=== PATIENT | male | born 1970 | race Caucasian/White ===

== ENCOUNTER 2020-05-07 12:19 | Inpatient (IN) ==
[2020-05-07] MEDS ORDERED: NITROGLYCERIN SL 0.4 MG/TAB TAB SL PRN ×2 (12:35→16:45)
[2020-05-07] MEDS ORDERED: ASPIRIN CHEW 324 MG PO STA (12:35)
--- NOTE | 2020-05-07 13:17 | XRay Report ---
XR chest 1V portable CLINICAL HISTORY: Atypical chest pain COMPARISON STUDY: No previous studies for comparison. FINDINGS: The cardiac and mediastinal contours are normal. There is no evidence of focal pulmonary co nsolidation. There is no evidence of failure. No pleural effusions are visualized.[ IMPRESSION: No active disease in the chest. ACT 112: Negative or not required by law. Electronically signed by: Trey Waters M.D. 05/07/2020 1:15 PM
[2020-05-07 13:18] LABS: Basophils # (auto) 0.07 K/uL (0-0.2); Basophils % (auto) 0.5 %; Eosinophils # (auto) 0.04 K/uL (0-0.5); Eosinophils % (auto) 0.3 %; Hemoglobin 18.5 g/dL (14.0-18.0); Immature Granulocytes # (auto) 0.03 K/uL (0.00-0.02); Immature Granulocytes % (auto) 0.2 %; Lymphocytes # (auto) 2.72 K/uL (1.2-3.4); Lymphocytes % (auto) 20.5 %; Mean Corpuscular Hemoglobin 31.6 pg (25-34); Mean Corpuscular Hgb Conc 35.6 g/dL (32-36); Mean Corpuscular Volume 88.7 fL (80-100); Mean Platelet Volume 12.7 fL (7.4-10.4); Monocytes % (auto) 8.3 %; Neutrophils # (auto) 9.33 K/uL (1.4-6.5); Neutrophils % (auto) 70.2 %; Platelet Count 184 K/uL (130-400); RDW Coefficient of Variation 12.7 % (11.5-14.5); RDW Standard Deviation 40.8 fL (36.4-46.3); Red Blood Count 5.86 M/uL (4.7-6.1); White Blood Count 13.29 K/uL (4.8-10.8)
[2020-05-07 13:20] LABS: INR 1.1 (0.9-1.1); Partial Thromboplastin Ratio 0.9; Partial Thromboplastin Time 25.4 Seconds (21.0-31.0); Prothrombin Time 11.7 Seconds (9.0-12.0)
[2020-05-07 13:27] LABS: Albumin Level 3.6 gm/dl (3.4-5.0); BUN Creatinine Ratio 8.1 (10-20); Calcium 8.3 mg/dl (8.5-10.1); Creatinine Clr Calc Pharmacy 94.1 ml/min; Est GFR (African American) 83.2; Est GFR (Non-African American) 71.8; Potassium 3.7 mmol/L (3.5-5.1)
[2020-05-07 13:35] LABS: Albumin Globulin Ratio 0.9 (0.9-2); Total Protein 7.6 gm/dl (6.4-8.2); Troponin I 30.9 ng/ml (0-0.045)
[2020-05-07] MEDS ORDERED: Heparin IV Low Dose WITH Bolus IV STA (13:37)
[2020-05-07] MEDS ORDERED: HEPARIN SODIUM/DEXTROSE 25,000 UNITS/500 ML BAG IV SCH (13:45)
[2020-05-07] MEDS ORDERED: NiCARDipine HCL INJ 2.5 MG/ML 10 ML AMP ONE (14:08)
[2020-05-07] MEDS ORDERED: HEPARIN (PORCINE) 1000 UNIT/ML 10 ML (CATH LAB USE ONLY) ONE ×2 (14:08→14:52)
[2020-05-07] MEDS ORDERED: fentaNYL citrate 100 MCG/2 ML VIAL ONE ×2 (14:08→15:16)
[2020-05-07] MEDS ORDERED: MIDAZOLAM HCL 1 MG/ML 2ML VIAL ONE ×2 (14:09→15:17)
[2020-05-07] MEDS ORDERED: NITROGLYCERIN/D5W 100MCG/ML 20ML SYR ONE ×2 (14:09→15:14)
--- NOTE | 2020-05-07 14:28 | Pre Anesthesia Assessment ---
Date of Service May 07, 2020 Pre Sedation Assessment Vital Signs Temp Pulse Pulse Resp BP BP Pulse Ox 05/07/20 14:15 87 17 167/101 H 98 05/07/20 13:31 74 15 97 05/07/20 13:30 75 14 118/87 97 05/07/20 13:01 89 19 96 05/07/20 13:00 87 17 125/95 96 05/07/20 12:42 97 05/07/20 12:41 90 15 140/98 97 05/07/20 12:39 87 14 96 05/07/20 12:37 98 H 20 150/119 H 97 05/07/20 12:21 98.2 F 102 H 18 120/87 96 Cardiovascular RRR, no murmur, no edema Respiratory normal respiratory effort, lungs clear to auscultation Pre-Sedation Airway Assessment Smoking Status: Never smoker Hx Sleep Apnea: No Hx Difficult Intubation: No Short, Thick Neck: No Thyromental Distance: > or= 3.5 Finger Breadths Oral Cavity: + WNL Mallampati Class: III ASA: ASA3 NPO Status Date of Last Intake of Fluids: 05/07/20 Time of Last Intake of Fluids: 09:00 Date of Last Intake of Solid Food: 05/07/20 Time of Last Intake of Solid Foods: 08:00 Procedure Planning Contraindications for Sedation: none Current Medications Reviewed: Yes Notes The planned sedation has been discussed with the patient. Informed Consent was obtained. I have identified the patient, determined the appropriateness of sedation and have assessed the patient immediately prior to the procedure. All medicine(s) and interventions are by my order.
--- NOTE | 2020-05-07 14:35 | Cardiology Consultation ---
Date of Consultation May 07, 2020 Assessment & Plan (1) Acute coronary syndrome: Presentation consistent with high risk acute coronary syndrome and recommend proceeding with urgent cardiac catheterization. No apparent contraindications to procedure. Discussed risks, benefits, alternatives of procedure with patient and they are willing to proceed. Further recommendations pending findings of coronary angiography. History of Present Illness Attending Physician: Alejandro Rubin MD History of Present Illness 50-year-old man here with acute chest pain, dynamic ST changes and elevated troponin to 30. Patient seen urgently after contacted by emergency department. No prior cardiac history. Significant family history of coronary artery disease. Father had first NH around age 50, later underwent bypass surgery. Older brother after massive NH in his early 40s. Does not currently follow with a doctor. Denies any active medical issues. States previously has had kidney stones and rare hematochezia. 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 Pain associated with shortness of breath, diaphoresis and frequent belching. Went home from work and continued to have intermittent pain overnight. Only able to sleep several hours. This morning with walking around his home pain recurred. Presented to ED this afternoon with mild residual chest pain. Hypertensive to the 160s. EKG showed subtle anterior elevations and [address] depressions in 3 and aVF. Allergies Allergy/AdvReac Type Severity Reaction Status Date / Time No Known Allergies Allergy Mild Unverified 11/04/06 03:48 ALLERGY2 Allergy Unknown Uncoded 11/04/06 03:48 Home Medications Home Medications Medication Instructions Recorded Confirmed Type None (Patient States No Home Meds) #0 11/04/06 History None (Patient States No Home Meds) #0 10/18/10 History Patient History Social History Smoking Status: Never smoker Feels Safe at Home: Yes Review of Systems Review of Systems: All systems reviewed & are unremarkable except as noted in HPI & below Physical Exam Physical Exam: General: Comfortable, no acute distress HEENT: Sclerae anicteric, mucous membranes moist Lungs: Clear to auscultation bilaterally, no rhonchi or wheezes Cardiac: Regular rate and rhythm, no murmurs. No JVD. Abdomen: Soft, nontender, nondistended, positive bowel sounds. Extremities: Warm, well perfused, no edema. 2+ radial pulses Skin: No rashes or lesions. Neuro: Nonfocal Psych: Alert orient x3, normal affect and mood Results & Data ([facility]) Vital Signs (Past 12 Hours) Vital Signs Temp Pulse Pulse Resp BP BP Pulse Ox 05/07/20 14:15 87 17 167/101 H 98 05/07/20 13:31 74 15 97 05/07/20 13:30 75 14 118/87 97 05/07/20 13:01 89 19 96 05/07/20 13:00 87 17 125/95 96 05/07/20 12:42 97 05/07/20 12:41 90 15 140/98 97 05/07/20 12:39 87 14 96 05/07/20 12:37 98 H 20 150/119 H 97 05/07/20 12:21 98.2 F 102 H 18 120/87 96 PG Care Time/CCT Total # of Minutes Spent Total Time Spent with Patient: Total time spent is greater than 50% in coordination of care (as documented) at patient's floor/unit and/or counseling patient: Coding Level of Care Code 77518 Inpt Consult Level 4 Diagnoses Acute coronary syndrome I24.9
[2020-05-07] MEDS ORDERED: EPTIFIBATIDE 2 MG/ML 10 ML VIAL (CATH LAB USE ONLY) IV ONE (15:10)
[2020-05-07] MEDS ORDERED: ONDANSETRON INJ 2 MG/ML 2 ML VIAL ONE (15:10)
--- NOTE | 2020-05-07 15:48 | Electrocardiogram Report ---
Test Reason : Blood Pressure : / mmHG Vent. Rate : 087 BPM Atrial Rate : 087 BPM P-R Int : 148 ms QRS Dur : 080 ms QT Int : 358 ms P-R-T Axes : 068 -35 026 degrees QTc Int : 430 ms Normal sinus rhythm Left axis deviation Low voltage QRS Nonspecific ST abnormality Abnormal ECG No previous ECGs available Confirmed by Aric Joseph ([id number]) on 05/07/2020 3:47:58 PM Referred By: REFERRED SELF Confirmed By:Aric Joseph
--- NOTE | 2020-05-07 15:51 | Electrocardiogram Report ---
Test Reason : Blood Pressure : / mmHG Vent. Rate : 078 BPM Atrial Rate : 078 BPM P-R Int : 150 ms QRS Dur : 074 ms QT Int : 372 ms P-R-T Axes : 055 -39 006 degrees QTc Int : 424 ms Normal sinus rhythm Left axis deviation Inferior infarct (cited on or before 07-MAY-2020) Lateral injury pattern ACUTE MO / STEMI Abnormal ECG When compared with ECG of 07-MAY-2020 12:27, (unconfirmed) No significant change was found Confirmed by Aric Joseph ([id number]) on 05/07/2020 3:51:29 PM Referred By: REFERRED SELF Confirmed By:Aric Joseph
[2020-05-07] MEDS ORDERED: EPTIFIBATIDE 0.75 MG/ML 75MG VIAL (CATH LAB USE ONLY) ONE (16:10)
[2020-05-07] MEDS ORDERED: TICAGRELOR 90 MG TAB PO ONE (16:10)
--- NOTE | 2020-05-07 16:36 | Post Anesthesia Assessment ---
Date of Service May 07, 2020 Post Sedation Assessment Vital Signs Temp Pulse Pulse Resp BP BP Pulse Ox 05/07/20 16:25 67 20 150/98 H 99 05/07/20 14:15 87 17 167/101 H 98 05/07/20 13:31 74 15 97 05/07/20 13:30 75 14 118/87 97 05/07/20 13:01 89 19 96 05/07/20 13:00 87 17 125/95 96 05/07/20 12:42 97 05/07/20 12:41 90 15 140/98 97 05/07/20 12:39 87 14 96 05/07/20 12:37 98 H 20 150/119 H 97 05/07/20 12:21 98.2 F 102 H 18 120/87 96 Recovery Score Activity: Moves 4 extremities Respiration: Deep Breath/Cough Circulation: +/-20% PreAnes Value Consciousness: Fully Awake Oxygen Saturation: O2 needed for >90% Post Anesthesia Score: 10 Discharge Sedation Level of Care: Fast Track Phase II Post Sedation Plan On clinical assessment, the patient appears to have tolerated the sedation without complications. Patient is recovering as anticipated. Patient will continue to be monitored by nursing and may be discharged when sedation discharge criteria are met per below protocol. Upon Completions of procedure up to 15 minutes continue every 5 minute vital signs and the P.A.R. score; then discharge to a Phase I or Fast Track to Phase II per the following guidelines: * Discharge Patient to appropriate Phase II area if PAR is 8 or greater or return to pre- procedure baseline. The post - procedure orders will be as directed. * If PAR score is less than 8 or not return to pre-procedure baseline then patient will follow Phase I monitoring till PAR is reached for Phase II. The Phase I may be done in procedure room or may call to secure a Phase I area. * If naloxone or flumazenil are used for reversal, hold in Phase I for continued monitoring from when last reversal dose was given for a minimum of 60 minutes or longer pending the nurse and/or physician discretion of patient condition before discharge to Phase II. Please call the Sedation Physician to re-evaluate and complete post-note for discharge to Phase II area. Do NOT discharge from procedure sedation or Phase 1 until post- sedation evaluation note is complete by procedure /sedation MD Sedation Discharge Instructions to be given to the patient at discharge to home.
[2020-05-07] MEDS ORDERED: EPTIFIBATIDE BOLUS/DRIP IV STA (16:40)
[2020-05-07] MEDS ORDERED: ONDANSETRON INJ 2 MG/ML 2 ML VIAL IV PRN (16:40)
[2020-05-07] MEDS ORDERED: ACETAMINOPHEN 325 MG TAB PO PRN (16:40)
[2020-05-07] MEDS ORDERED: EPTIFIBATIDE 75 MG/100 ML VIAL IV SCH (16:45)
[2020-05-07] MEDS ORDERED: SODIUM CHLORIDE 0.9% 1000ML 1,000 ML IV SCH (16:45)
--- NOTE | 2020-05-07 17:14 | Cardiac Catheterization ---
[facility] Data: Scan Coordinator Cardiac Status Clinical evaluation leading to the procedure CAD Presenation: Non STEMI Anginal Classification: CCS IV Heart Failure: No Cardiogenic Shock within 24 Hours: No Cardiac Arrest within 24 Hours: No Imaging Studies Past 6 Months: No Stress Studies Past 6 Months: No Diagnostic Physicians Name: Alejandro Rubin MD Closure Device Percutaneous Entry Location: Radial Closure Device: Radial Band Recommendations: PCI without planned CABG PCI Indication: PCI for high risk Non-KAITLYNN Lesion Segment Name: proximal circumflex Culprit Artery: Yes Stenosis Prior to Rx (%): 100 Chronic Total Occlusion: No IVUS: No FFR: No Pre-Procedure RUSTAM Flow: 0 Previously Treated Lesion: No Lesion Complexity: High/C Lesion Length (mm): 40 Thrombus Present: Yes Guidewire Across Lesion: Stenosis Post-Procedure (%): 0 Post-Procedure RUSTAM Flow: 3 Devices(s) Deployed: Yes Yes Intraprocedure Events Significant Disection: No Perforation: No Cardiac Cath Procedure Full Procedure Date May 07, 2020 Pre-Procedure Diagnosis Pre-Procedure Diagnosis: Non STEMI AUC Score AUC Score: 8 Post-Procedure Diagnosis Post-Procedure Diagnosis: Severe CAD, Successful PCI and Normal Intracardiac Pressures Procedure(s) Performed Procedure(s) Performed: Coronary Angiography, Left Heart Cath and Drug Eluting Stent Trim Installer Alejandro Rubin MD Records Assistant(s) Liliya Estimated Blood Loss Estimated Blood Loss: 20 Medication(s) Medication(s): Fentanyl, Heparin, Integrilin, Lidocaine 1%, Nicardipine, Nitroglycerin and Versed Medication(s): Ticagrelor Summary of Findings Indication: High risk acute coronary syndrome Access: 6 Fr slender right radial artery Catheters: [place], EBU 3.5 guide, pigtail Findings: LM -luminal irregularities LAD -medium caliber vessel, proximal to mid luminal irregularities, distal vessel wraps around apex. Medium caliber second diagonal with 40 to 50% proximal disease Circumflex -100% proximal acute occlusion at takeoff of small first OM RCA -dominant, large caliber vessel, mildly calcified, 30% proximal to mid disease, 50% distal, focal 70% stenosis in large right posterior AV branch. LVEDP -12 -- PCI -- Antithrombotic therapy: Heparin, Integrilin, ticagrelor Procedure: Left main cannulated with EBU 3.5 guide Cutting Tool Sharpener 50 wire passed across lesion into distal OM2 Proximal to mid circumflex lesion predilated with 2.5 compliant balloon Minimal reestablished flow after initial angioplasty. Given IC Integrilin and vasodilators. Second submersible pilot 50 wire placed into distal circumflex/left PLB Proximal/mid into OM 2 predilated with 2.0 and 2.5 balloons Small distal circumflex dilated with 2.0 balloon Mid circumflex into OM 2 stented with 2.25 x 30 mm [place] drug-eluting stent Distal circumflex rewired and takeoff through stent struts dilated with 2.0 balloon Second PRESTON (2.75 x 12 Mychal) placed from proximal circumflex to mid circumflex overlapping initial stent Stents post-dilated with 3.0 noncompliant balloon Distal circumflex again rewired and stents gently dilated with 2.0 balloon IC vasodilators administered for spasm Questionable edge dissection versus thrombus noted just after distalmost stent. Third PRESTON (2.25 x 12 Mychal) placed to OM 2 overlapping distal most aspect of initial stent Stent postdilated with stent balloon Post procedure RUSTAM 2-3 flow, stents well expanded with minimal residual st enosis. Some distal thrombus in OM 2. Arterial Closure: TR band Summary: 1. 100% acute occluded proximal circumflex 2. Severe single-vessel non-culprit coronary artery disease -50% distal RCA, 70% right posterior AV branch stenosis 3. Normal intracardiac filling pressure 4. Successful PCI of proximal circumflex into OM 2 with 3 overlapping drug- eluting stents (2.75 x 12, 2.25 x 30, 2.25 x 12; proximal stents postdilated with 3.0 NC). -Small distal circumflex takeoff dilated through stent struts with 2.0 balloon Recommendations: Admit to PCU for continued monitoring Continue Integrilin for 4 hours with some distal residual thrombus Loaded with ticagrelor 180 mg in Scan Coordinator Continue dual-antiplatelet therapy for at least 1 year. Trend troponins until peak, Check Echo Uptitrate beta-saul/MARIEL as BP allows High-dose statin Consult cardiac Rehab Possible staged PCI to distal RCA/right PAV later this hospitalization. Hemodynamics Rest Ao:: 95/68/90 Final Ao: 119/74/84 LV: 124/12 Recommendations Recommendations: PCI without planned CABG Specimens Specimens: None Radiation Exposure (mGy) 7000 Contrast (mls) 135 Fluids (cc crystalloids) Fluids (cc crystalloids): 180 Drains Drains: None Anesthesia Moderate Procedural Complication(s) None Disposition PCU I attest to the content of the Intraoperative Record and any orders documented therein. Any exceptions are noted below. [facility] Card Cath Procedure Codes Cardiac Catheterization Procedure 1: Cardiovascular Cath Procedures: 21470 Coronaries and LHC (+/-LV) Moderate Sedation Procedure 1: Sedation/Anesthesia: 19216 Mod Sedation by the same physician;Init15 Min Child Age 5 & Up Procedure 2: Sedation/Anesthesia: 46012 Mod Sedation by the same physician; Ea [id number] Minutes Stenting Procedure 1: Cardiovascular Stent Procedures: 21023 Perc transluminal revascularization of acute sub/total occl, aMI PG Care Time/CCT Total # of Minutes Spent Total Time Spent with Patient: Total time spent is greater than 50% in coordination of care (as documented) at patient's floor/unit and/or counseling patient:
--- NOTE | 2020-05-07 18:27 | Emergency Department Note ---
History of Present Illness General Chief complaint: Chest Pain Stated complaint: CHEST PAIN, SOB Time Seen by Provider: 05/07/20 12:26 Source: patient and RN notes reviewed Mode of arrival: ambulatory Limitations: no limitations History of Present Illness Provider complaint: Chest pain Maximum Pain Intensity: 1 This patient is a 50-year-old male who presents to the emergency department with complaints of a substernal chest discomfort that wraps around both sides of the chest. Patient states he first noticed the discomfort last evening at work at approximately 8:30 PM. 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 He then ate a rice crispy treat thinking it was his blood sugar. The patient was eventually sent home and tried to sleep although was restless and at about 1 AM woke up with recurrent symptoms. Patient again tried to sleep and at 9 AM contacted his insurance company's nurse line who sent him to the emergency department. Patient states upon getting out of bed today he developed similar chest sensation and diaphoresis. Currently the patient rates his pain a 2/10 and it is in his upper back. He denies any recent fevers, chills, cough or shortness of breath. He denies any vomiting or diarrhea. Patient states his diet is "terrible" and he does not follow with a PCP. He drinks occasionally but states when he drinks it is "heavy." Patient also states he occasionally smokes cigarettes. Home Medications Home Medications Medication Instructions Recorded Confirmed Type None (Patient States No Home Meds) #0 11/04/06 History None (Patient States No Home Meds) #0 10/18/10 History Allergies Allergy/AdvReac Type Severity Reaction Status Date / Time No Known Allergies Allergy Mild Unverified 11/04/06 03:48 ALLERGY2 Allergy Unknown Uncoded 11/04/06 03:48 Past Med/Surg History Social History (Updated 05/07/20 @ 18:36 by Susan Hermosillo MD) Smoking Status: Light tobacco smoker Tobacco Type: Cigarettes Hx Alcohol Use: Yes Alcohol Intake Frequency: 2-4 x/Month Alcohol Intake Frequency Comment: Episodic but heavy Hx Substance Use: Yes Last Used Substance Other:: smoked years ago. has quit. Preferred Language: Yoruba Communication Ability: Effective Electrical Solderer Required: No Beliefs That Will Affect Care: None Current Living Situation: Alone Other Information That Helps Us Care for You: No Feels Safe at Home: Yes Safety Concerns: Feels Safe At This Time Review of Systems See HPI for pertinent positives & negatives. and A total of 10 systems reviewed and were otherwise negative Physical Exam Vital Signs Vital Signs - 24 hr 05/07/20 12:21 05/07/20 12:37 05/07/20 12:39 Temperature 36.8 C Temperature Source Oral Pulse Rate 102 H 98 H 87 Pulse Rate [Apical] Pulse Rate from SpO2 Sensor 97 H 88 Pulse Rhythm [Apical] Respiratory Rate 18 20 14 Respiratory Effort / Characteristics Respiratory Depth Blood Pressure 120/87 150/119 H Blood Pressure [Left Arm] Blood Pressure Mean 98 129 Blood Pressure Mean [Left Arm] Blood Pressure Position [Left Arm] Pulse Oximetry 96 97 96 Oxygen Delivery Method Room Air Sepsis Recent Fever Within 48 Hours No Sepsis New/Unexplained Change in Mental Status No Sepsis Action Taken by Nursing No Action Required 05/07/20 12:41 05/07/20 12:42 05/07/20 13:00 Temperature Temperature Source Pulse Rate 90 87 Pulse Rate [Apical] Pulse Rate from SpO2 Sensor 89 85 Pulse Rhythm [Apical] Respiratory Rate 15 17 Respiratory Effort / Characteristics Respiratory Depth Blood Pressure 140/98 125/95 Blood Pressure [Left Arm] Blood Pressure Mean 102 102 Blood Pressure Mean [Left Arm] Blood Pressure Position [Left Arm] Pulse Oximetry 97 97 96 Oxygen Delivery Method Room Air Sepsis Recent Fever Within 48 Hours Sepsis New/Unexplained Change in Mental Status Sepsis Action Taken by Nursing 05/07/20 13:01 05/07/20 13:30 05/07/20 13:31 Temperature Temperature Source Pulse Rate 89 75 74 Pulse Rate [Apical] Pulse Rate from SpO2 Sensor 89 75 75 Pulse Rhythm [Apical] Respiratory Rate 19 14 15 Respiratory Effort / Characteristics Respiratory Depth Blood Pressure 118/87 Blood Pressure [Left Arm] Blood Pressure Mean 92 Blood Pressure Mean [Left Arm] Blood Pressure Position [Left Arm] Pulse Oximetry 96 97 97 Oxygen Delivery Method Sepsis Recent Fever Within 48 Hours Sepsis New/Unexplained Change in Mental Status Sepsis Action Taken by Nursing 05/07/20 14:15 05/07/20 16:25 05/07/20 16:40 Temperature Temperature Source Pulse Rate Pulse Rate [Apical] 87 67 64 Pulse Rate from SpO2 Sensor Pulse Rhythm [Apical] Regular Regular Respiratory Rate 17 20 20 Respiratory Effort / Characteristics Non-Labored Spontaneous Non-Labored Spontaneous Respiratory Depth Normal Normal Blood Pressure Blood Pressure [Left Arm] 167/101 H 150/98 H 137/90 Blood Pressure Mean Blood Pressure Mean [Left Arm] 123 115 105 Blood Pressure Position [Left Arm] Sitting Lying Lying Pulse Oximetry 98 99 98 Oxygen Delivery Method Room Air Room Air Room Air Sepsis Recent Fever Within 48 Hours Sepsis New/Unexplained Change in Mental Status Sepsis Action Taken by Nursing 05/07/20 16:46 Temperature Temperature Source Pulse Rate Pulse Rate [Apical] 66 Pulse Rate from SpO2 Sensor Pulse Rhythm [Apical] Regular Respiratory Rate 20 Respiratory Effort / Characteristics Non-Labored Spontaneous Respiratory Depth Normal Blood Pressure Blood Pressure [Left Arm] 144/85 H Blood Pressure Mean Blood Pressure Mean [Left Arm] 104 Blood Pressure Position [Left Arm] Lying Pulse Oximetry 98 Oxygen Delivery Method Room Air Sepsis Recent Fever Within 48 Hours Sepsis New/Unexplained Change in Mental Status Sepsis Action Taken by Nursing Vital signs reviewed. General: Well-appearing 50 yo male, in no significant distress. HEENT: No scleral icterus, PERRLA, neck supple. Atraumatic. Cardiovascular: Regular rate and rhythm, no extra sounds. Pulmonary: Clear to auscultation bilaterally, normal work of breathing. Abdomen: Soft, obese, nontender, nondistended, positive bowel sounds. Musculoskeletal: Atraumatic, no peripheral edema. Neurologic: Patient awake alert and oriented x 3 Skin: Warm, dry, no rash Course Administered Medications Sodium Chloride (Nss 1000ml) 1,000 mls @ 100 mls/hr IV .Q10H [facility] Stop: 05/07/20 21:44 Last Admin: 05/07/20 18:02 Dose: 100 mls/hr Documented by: [id number] Eptifibatide (Integrilin) 75 mg in 100 mls @ 17.008 mls/hr IV .Q5H53M [facility]; Protocol Stop: 05/07/20 20:00 Last Admin: 05/07/20 18:03 Dose: 2 mcg/kg/min, 17 mls/hr Documented by: [id number] Cosigned by: [id number] Discontinued Medications Aspirin (Aspirin Chew 324 Mg) 324 mg PO NOW [facility] Stop: 05/07/20 12:36 Last Admin: 05/07/20 12:54 Dose: 324 mg Documented by: [id number] Eptifibatide (Eptifibatide 2 Mg/Ml 10 Ml Vial (Library Cataloging Technician Use Only)) Confirm Administered Dose 40 mg IV .STK-MED ONE Stop: 05/07/20 15:11 Last Admin: 05/07/20 17:27 Dose: Not Given Documented by: [id number] Eptifibatide (Eptifibatide 0.75 Mg/Ml 75mg Vial (Library Cataloging Technician Use Only)) Confirm Administered Dose 75 mg .ROUTE .STK-MED ONE Stop: 05/07/20 16:11 Last Admin: 05/07/20 17:28 Dose: Not Given Documented by: [id number] Fentanyl Citrate (Fentanyl Citrate 100 Mcg/2 Ml Vial) Confirm Administered Dose 100 mcg .ROUTE .STK-MED ONE Stop: 05/07/20 14:09 Last Admin: 05/07/20 17:26 Dose: Not Given Documented by: [id number] Fentanyl Citrate (Fentanyl Citrate 100 Mcg/2 Ml Vial) Confirm Administered Dose 100 mcg .ROUTE .STK-MED ONE Stop: 05/07/20 15:17 Last Admin: 05/07/20 17:27 Dose: Not Given Documented by: [id number] Heparin Sodium (Porcine) (Heparin (Porcine) 1000 Unit/Ml 10 Ml (Library Cataloging Technician Use Only)) Confirm Administered Dose 10,000 units .ROUTE .STK-MED ONE Stop: 05/07/20 14:09 Last Admin: 05/07/20 17:26 Dose: Not Given Documented by: [id number] Heparin Sodium (Porcine) (Heparin (Porcine) 1000 Unit/Ml 10 Ml (Library Cataloging Technician Use Only)) Confirm Administered Dose 10,000 units .ROUTE .STK-MED ONE Stop: 05/07/20 14:53 Last Admin: 05/07/20 17:26 Dose: Not Given Documented by: [id number] Heparin Sodium/Dextrose (Heparin Iv Low Dose With Bolus) 1 ea IV NOW [facility]; Protocol Stop: 05/07/20 13:38 Last Admin: 05/07/20 17:25 Dose: Not Given Documented by: [id number] Heparin Sodium/Sodium Chloride (Heparin In Nss Infusion 1000 Unit/500 Ml (2 U/Ml) Bag) Confirm Administered Dose 3,000 units IV .STK-MED ONE Stop: 05/07/20 14:10 Last Admin: 05/07/20 17:26 Dose: Not Given Documented by: [id number] Heparin Sodium/Sodium Chloride (Heparin In Nss Infusion 1000 Unit/500 Ml (2 U/Ml) Bag) Confirm Administered Dose 4,000 units IV .STK-MED ONE Stop: 05/07/20 16:42 Last Admin: 05/07/20 17:29 Dose: Not Given Documented by: [id number] Heparin Sodium/Dextrose (Heparin Sodium/Dextrose) 25,000 units in 500 mls @ 0.02 mls/hr IV .Q24H [facility]; Protocol Stop: 06/06/20 13:44 Last Admin: 05/07/20 17:25 Dose: Not Given Documented by: [id number] Midazolam HCl (Midazolam Hcl 1 Mg/Ml 2ml Vial) Confirm Administered Dose 2 mg .ROUTE .STK-MED ONE Stop: 05/07/20 14:10 Last Admin: 05/07/20 17:26 Dose: Not Given Documented by: [id number] Midazolam HCl (Midazolam Hcl 1 Mg/Ml 2ml Vial) Confirm Administered Dose 2 mg .ROUTE .STK-MED ONE Stop: 05/07/20 15:18 Last Admin: 05/07/20 17:27 Dose: Not Given Documented by: [id number] Nicardipine HCl (Nicardipine Hcl Inj 2.5 Mg/Ml 10 Ml Amp) Confirm Administered Dose 25 mg .ROUTE .STK-MED ONE Stop: 05/07/20 14:09 Last Admin: 05/07/20 17:26 Dose: Not Given Documented by: [id number] Nitroglycerin (Nitroglycerin Sl 0.4 Mg/Tab Tab) 0.4 mg SL UD PRN PRN Reason: Chest Pain Stop: 06/06/20 12:34 Last Admin: 05/07/20 12:54 Dose: 0.4 mg Documented by: [id number] Nitroglycerin/Dextrose (Nitroglycerin/D5w 100mcg/Ml 20ml Syr) Confirm Administered Dose 2,000 mcg .ROUTE .STK-MED ONE Stop: 05/07/20 14:10 Last Admin: 05/07/20 17:26 Dose: Not Given Documented by: [id number] Nitroglycerin/Dextrose (Nitroglycerin/D5w 100mcg/Ml 20ml Syr) Confirm Adminis tered Dose 2,000 mcg .ROUTE .STK-MED ONE Stop: 05/07/20 15:15 Last Admin: 05/07/20 17:27 Dose: Not Given Documented by: [id number] Ondansetron HCl (Ondansetron Inj 2 Mg/Ml 2 Ml Vial) Confirm Administered Dose 4 mg .ROUTE .STK-MED ONE Stop: 05/07/20 15:11 Last Admin: 05/07/20 17:27 Dose: Not Given Documented by: [id number] Ticagrelor (Ticagrelor 90 Mg Tab) Confirm Administered Dose 180 mg PO .STK-MED ONE Stop: 05/07/20 16:11 Last Admin: 05/07/20 16:29 Dose: 180 mg Documented by: [id number] Critical Care Time Critical Care Time: Yes I have personally spent greater than 35 minutes of critical care time in the direct management of this patient. This includes bedside care, interpretation of diagnostic studies, and testing, discussion with consultants, patient, and family members, and other required patient management activities. This 35 minutes is in excess of all separately billable procedures. Medical Decision Making Differential Diagnosis DDx: Acute coronary syndrome, pulmonary embolus, aortic dissection, musculoskeletal pain, pneumonia, pleural effusion, pneumothorax, GERD, gastritis, cholecystitis Home Medications Current Medication List: was personally reviewed by me Laboratory Data Attestation: I reviewed the patient's lab results. Result diagrams: 05/07/20 12:53 05/07/20 12:53 Lab Results 05/07/20 05/07/20 05/07/20 Range/Units 12:53 12:53 12:53 WBC 13.29 H (4.8-10.8) K/uL RBC 5.86 (4.7-6.1) M/uL Hgb 18.5 H (14.0-18.0) g/dL Hct 52.0 (42-52) % MCV 88.7 (80-100) fL MCH 31.6 (25-34) pg MCHC 35.6 (32-36) g/dL RDW Std Deviation 40.8 (36.4-46.3) fL RDW Coeff of Nelson 12.7 (11.5-14.5) % Plt Count 184 (130-400) K/uL MPV 12.7 H (7.4-10.4) fL Immature Gran % (Auto) 0.2 % Neut % (Auto) 70.2 % Lymph % (Auto) 20.5 % Glynn % (Auto) 8.3 % Eos % (Auto) 0.3 % Baso % (Auto) 0.5 % Neut # (Auto) 9.33 H (1.4-6.5) K/uL Lymph # (Auto) 2.72 (1.2-3.4) K/uL Glynn # (Auto) 1.10 H (0.11-0.59) K/uL Eos # (Auto) 0.04 (0-0.5) K/uL Baso # (Auto) 0.07 (0-0.2) K/uL Immature Gran # (Auto) 0.03 H (0.00-0.02) K/uL PT 11.7 (9.0-12.0) Seconds INR 1.1 (0.9-1.1) APTT 25.4 (21.0-31.0) Seconds PTT Ratio 0.9 Activ Coag Time Kaolin (94-140) SECONDS Sodium 135 L (136-145) mmol/L Potassium 3.7 (3.5-5.1) mmol/L Chloride 103 (98-107) mmol/L Carbon Dioxide 20 L (21-32) mmol/L Anion Gap 12.0 H (3-11) BUN 9 (7-18) mg/dl Creatinine 1.17 (0.6-1.4) mg/dl Est Cr Clr Drug Dosing 94.1 ml/min Est GFR ( Amer) 83.2 Est GFR (Non-Af Amer) 71.8 BUN/Creatinine Ratio 8.1 L (10-20) Glucose 273 H (70-99) mg/dl Calcium 8.3 L (8.5-10.1) mg/dl Total Bilirubin 1.0 (0.2-1) mg/dl AST 245 H (15-37) U/L ALT 65 (12-78) U/L Alkaline Phosphatase 86 (45-117) U/L Troponin I 30.900 H* (0-0.045) ng/ml Total Protein 7.6 (6.4-8.2) gm/dl Albumin 3.6 (3.4-5.0) gm/dl Globulin 4.0 (2.5-4.0) gm/dl Albumin/Globulin Ratio 0.9 (0.9-2) Lipase 118 (73-393) U/L 05/07/20 05/07/20 Range/Units 15:15 15:43 WBC (4.8-10.8) K/uL RBC (4.7-6.1) M/uL Hgb (14.0-18.0) g/dL Hct (42-52) % MCV (80-100) fL MCH (25-34) pg MCHC (32-36) g/dL RDW Std Deviation (36.4-46.3) fL RDW Coeff of Nelson (11.5-14.5) % Plt Count (130-400) K/uL MPV (7.4-10.4) fL Immature Gran % (Auto) % Neut % (Auto) % Lymph % (Auto) % Glynn % (Auto) % Eos % (Auto) % Baso % (Auto) % Neut # (Auto) (1.4-6.5) K/uL Lymph # (Auto) (1.2-3.4) K/uL Glynn # (Auto) (0.11-0.59) K/uL Eos # (Auto) (0-0.5) K/uL Baso # (Auto) (0-0.2) K/uL Immature Gran # (Auto) (0.00-0.02) K/uL PT (9.0-12.0) Seconds INR (0.9-1.1) APTT (21.0-31.0) Seconds PTT Ratio Activ Coag Time Kaolin 235 H 301 H (94-140) SECONDS Sodium (136-145) mmol/L Potassium (3.5-5.1) mmol/L Chloride (98-107) mmol/L Carbon Dioxide (21-32) mmol/L Anion Gap (3-11) BUN (7-18) mg/dl Creatinine (0.6-1.4) mg/dl Est Cr Clr Drug Dosing ml/min Est GFR ( Amer) Est GFR (Non-Af Amer) BUN/Creatinine Ratio (10-20) Glucose (70-99) mg/dl Calcium (8.5-10.1) mg/dl Total Bilirubin (0.2-1) mg/dl AST (15-37) U/L ALT (12-78) U/L Alkaline Phosphatase (45-117) U/L Troponin I (0-0.045) ng/ml Total Protein (6.4-8.2) gm/dl Albumin (3.4-5.0) gm/dl Globulin (2.5-4.0) gm/dl Albumin/Globulin Ratio (0.9-2) Lipase (73-393) U/L Imaging Data Radiologist's Impression: XR chest 1V portable CLINICAL HISTORY: Atypical chest pain COMPARISON STUDY: No previous studies for comparison. FINDINGS: The cardiac and mediastinal contours are normal. There is no evidence of focal pulmonary consolidation. There is no evidence of failure. No pleural effusions are visualized.[ IMPRESSION: No active disease in the chest. ACT 112: Negative or not required by law. Electronically signed by: Trey Waters M.D. 05/07/2020 1:15 PM Dictated: 05/07/20 131 Transcribed: 05/07/20 131 ECG Data Attestation: I personally reviewed and interpreted this ECG as follows: Indication: + chest pain Rate (beats per minute): 87 Rhythm: + normal sinus ECG Intervals/blocks: + Normal QT-c ECG [place]: + Left axis deviation ECG ST segments: + ST elevation (aVL) and + Nonspecific ST abnormalities (ST depression in the inferior and anterior leads.) ECG Findings: no PACs and no PVCs Comparison ECG Date: no prior available Blood Pressure Blood Pressure Findings: Elevated blood pressure Blood Pressure Disposition: further management by hospitalist MEG Narrative This patient was evaluated and appeared to be in no significant distress. IV a ccess was obtained and laboratory work was drawn. 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 EKG reveals evidence of ST segment depression in the inferior and anterior leads. Patient was given 324 mg of aspirin to chew. He was given a nitroglycerin tablet with some improvement of his symptoms. He complains only of a mild upper back discomfort. Chest x-ray was obtained and is negative for acute process. Dr. Rubin of interventional cardiology was consulted. We discussed the EKG changes in the patient's troponin of 30. A heparin drip was ordered but held as the patient was taken to the catheterization lab for further management. He expres sed an understanding of the plan and agreed. A phone call to the patient's brother was made and a message was left. Impression & Plan Acute coronary syndrome Discharge Plan Visit Data Chief Complaint: Chest Pain Stated Complaint: CHEST PAIN, SOB ED Provider: Jaimee,Susan B Discharge Problem: Acute coronary syndrome Patient Disposition: Still a Patient Discharge Instructions Interventions: ED Discharge Assessment Last Done: 05/07/20 14:00
[2020-05-07] MEDS ORDERED: DEXTROSE 50% 50 ML SYRINGE IV PRN (18:30)
[2020-05-07] MEDS ORDERED: CARBOHYDRATES FOR HYPOGLYCEMIA PO PRN (18:30)
[2020-05-07] MEDS ORDERED: GLUCAGON FOR INJ 1 MG VIAL SQ PRN (18:30)
[2020-05-07] MEDS ORDERED: GLUCOSE 10 TABS/TUBE PO PRN (18:30)
[2020-05-07] MEDS ORDERED: GLUCOSE 40% GEL 15 GM TUBE PO PRN (18:30)
--- NOTE | 2020-05-07 18:30 | History & Physical Report ---
Date of Service May 07, 2020 Assessment & Plan (1) STEMI (ST elevation myocardial infarction): Patient currently chest pain free after cardiac catheterization 100% acute occluded proximal circumflex culprit vessel with successful PCI of proximal circumflex into the OM2 with x3 overlapping drug-eluting stents Appreciate interventional cardiology management -discussed care with Dr. Rubin Aspirin 81 mg p.o. daily Brilinta 90 mg p.o. twice daily Metoprolol tartrate 25 mg twice daily Lisinopril 5 mg p.o. daily Atorvastatin 80 mg p.o. daily Monitor in PCU for arrhythmias HbA1c and lipid panel with a.m. labs TTE tomorrow Cardiac consult placed Additional severe single-vessel non-culprit coronary artery disease in RCA - possible staged PCI to this later in hospitalization planned (2) Hyperglycemia: Possible stress reaction, however given lack of primary care suspect he has underlying diabetes. HbA1c with a.m. labs - if elevated or requiring ongoing insulin will need diabetic education BSG ACHS with Novolog correction factor to aim tight control with aim 100-140. (3) Polycythemia: Most likely secondary to obstructive sleep apnea. However given urgency with acute AR will send off JAK2 mutation labs in AM. If Hct > 45% with am labs recommend phlebotomy to aim < 45% and hematology follow up. Admission and Anticipated Discharge Date Admission Date: May 07, 2020 History of Present Illness Chief Complaint: STEMI Primary Care Provider: NO PCP Jaylan Kelly is a 50 year old male who presented to the ER with substernal chest pain radiating around both sides of his chest. This started at 8-8:30 PM last night and was the most severe it is being at this time at this time. Associated shortness of breath, diaphoresis, belching. He was sent home from work but continued to have intermittent pain overnight but eventually managed to get to sleep. Upon waking this morning he continued to have chest pain worse on exertion. He smokes occasionally. Does not follow regularly with a PCP. Notes excessive snoring at nighttime but no diagnosed obstructive sleep apnea. No known prior coronary artery disease. Significant family history with his father having an AR in his 50s requiring bypass surgery. His older brother now had a cardiac arrest with suspected massive AR in his early 40s. In the ER he was having dynamic ST elevation changes anteriorly with reciprocal ST depressions inferiorly. He was taken emergently to the [facility] by Dr. Rubin showing severe coronary artery disease with 100% acute occluded proximal circumflex with successful PCI x3 [place]. Discussed his care after his cardiac cath with Dr. Rubin. The patient was first seen by myself in the PCU. Allergies Allergy/AdvReac Type Severity Reaction Status Date / Time No Known Allergies Allergy Mild Unverified 11/04/06 03:48 Home Medications Home Medications Medication Instructions Recorded Confirmed Type aspirin 81 mg PO QAM #30 tab 05/09/20 Rx atorvastatin 80 mg PO QPM #30 tab 05/09/20 Rx blood sugar diagnostic [OneTouch #100 ea 05/09/20 Rx Verio test strips] insulin glargine [Lantus Solostar 35 unit SUBCUT QAM #15 ml 05/09/20 Rx U-100 Insulin] lancets [OneTouch Delica Plus #100 ea 05/09/20 Rx Lancet] lisinopril 5 mg PO DAILY #30 tab 05/09/20 Rx metformin 500 mg PO DAILY #30 tab 05/09/20 Rx metoprolol succinate 50 mg PO PM #30 tab 05/09/20 Rx nitroglycerin [Nitrostat] 0.4 mg SUBLINGUAL Q5M PRN #5 tab 05/09/20 Rx pen needle, diabetic [Comfort EZ #100 ea 05/09/20 Rx Pen [place]] semaglutide [Rybelsus] 3 mg PO DAILY 30 Days #30 tab 05/09/20 Rx ticagrelor [Brilinta] 90 mg PO BID #60 tab 05/09/20 Rx Past Med/Surg History Medical History (Updated 05/10/20 @ 00:03 by Eric Maharaj) Acute coronary syndrome Patient denies medical problems Social History (Updated 05/07/20 @ 18:36 by Susan Hermosillo MD) Smoking Status: Light tobacco smoker Tobacco Type: Cigarettes Hx Alcohol Use: Yes Alcohol Intake Frequency: 2-4 x/Month Alcohol Intake Frequency Comment: Episodic but heavy Hx Substance Use: No Preferred Language: [place] Citizen Communication Ability: Effective Burrer Marker Axle Required: No Beliefs That Will Affect Care: None Current Living Situation: Alone Feels Safe at Home: Yes Review of Systems Review of Systems: All systems reviewed & are unremarkable except as noted in HPI & below Physical Exam Constitutional: well developed; + not well nourished and no acute distress Eyes: PERRL, conjunctivae normal, anicteric sclerae ENMT: external ear and nose normal, oropharynx normal Neck: normal visual inspection, trachea midline, + short neck and + thick neck Thyroid: no thyromegaly Respiratory: normal respiratory effort, lungs clear to auscultation Cardiovascular: Rate/Rhythm: regular rate and regular rhythm Heart Sounds: no murmur Vessels: no JVD Extremities: normal capillary refill and + pedal edema (Trace bilateral ankles); no calf tenderness Gastrointestinal (Abdomen): normal bowel sounds, soft, nontender, no hepatosplenomegaly Musculoskeletal: no cyanosis or clubbing, extremities motor strength 5/5 Skin: no rashes, warm and dry Neurologic: moves all extremities and awake; no focal motor deficits and not confused Psychiatric: A+Ox3, euthymic affect Genitourinary: no CVA tenderness Lymphatic: no cervical or axillary lymphadenopathy Results & Data Results & Data ([facility]) Vital Signs (Past 12 Hours) Vital Signs Temp Pulse Pulse Resp BP BP Pulse Ox 05/07/20 16:46 66 20 144/85 H 98 05/07/20 16:40 64 20 137/90 98 05/07/20 16:25 67 20 150/98 H 99 05/07/20 14:15 87 17 167/101 H 98 05/07/20 13:31 74 15 97 05/07/20 13:30 75 14 118/87 97 05/07/20 13:01 89 19 96 05/07/20 13:00 87 17 125/95 96 05/07/20 12:42 97 05/07/20 12:41 90 15 140/98 97 05/07/20 12:39 87 14 96 05/07/20 12:37 98 H 20 150/119 H 97 05/07/20 12:21 36.8 C 102 H 18 120/87 96 Diagnostic Findings XR chest 1V portable IMPRESSION: No active disease in the chest. ECG Indication: chest pain Rate (beats per minute): 87 Additional Comments: Dynamic increasing ST elevation in anterior leads with reciprocal ST depression in inferior leads across x3 EKGs taken in the ER All in normal sinus rhythm Code Status & VTE Plan Code Status Full VTE Prophylaxis Plan VTE Prophylaxis will be ordered: No PG Care Time/CCT Total # of Minutes Spent Total Time Spent with Patient: Total time spent is greater than 50% in coordination of care (as documented) at patient's floor/unit and/or counseling patient: Coding Level of Care Code 77201 Initial Inpt Care Lvl 3 Diagnoses STEMI (ST elevation myocardial infarction) I21.3 Hyperglycemia R73.9 Polycythemia D75.1
[2020-05-07] MEDS: METOPROLOL TARTRATE 25 MG TAB PO SCH (20:05)
[2020-05-07] MEDS ORDERED: INSULIN ASPART 100 UNITS/ML 3 ML PEN SC SCH (21:00)
[2020-05-07] MEDS ORDERED: POTASSIUM CHLORIDE 20 MEQ TABCR PO STA (21:38)
[2020-05-07] MEDS ORDERED: MAGNESIUM SULFATE / D5W 1 GM/100 ML BAG IV ONE (22:22)
[2020-05-07] MEDS: INSULIN GLARGINE SOLOSTAR 100 UNITS/ML 3 ML PEN SC SCH (22:24)
[2020-05-07] MEDS: MAGNESIUM OXIDE 400 MG TAB PO SCH (22:39)
[2020-05-07] MEDS ORDERED: FAMOTIDINE 20MG IV PUSH 20 MG/5 ML SYR IV STA ×2 (23:03→23:09)
[2020-05-07] MEDS ORDERED: ALUMINUM/MAGNESIUM/SIMETH (MAALOX MAX) 30 ML UDC PO STA (23:09)
[2020-05-08] MEDS ORDERED: INSULIN ASPART 100 UNITS/ML 3 ML PEN SC ONE ×2 (04:00)
[2020-05-08] MEDS: TICAGRELOR 90 MG TAB PO SCH ×2 (05:32→20:28)
[2020-05-08 05:38] LABS: Basophils # (auto) 0.05 K/uL (0-0.2); Basophils % (auto) 0.4 %; Eosinophils # (auto) 0.05 K/uL (0-0.5); Eosinophils % (auto) 0.4 %; Hematocrit (blood only) 49.1 % (42-52); Hemoglobin 17.5 g/dL (14.0-18.0); Immature Granulocytes # (auto) 0.03 K/uL (0.00-0.02); Immature Granulocytes % (auto) 0.2 %; Lymphocytes # (auto) 2.63 K/uL (1.2-3.4); Lymphocytes % (auto) 19.4 %; Mean Corpuscular Hemoglobin 31.7 pg (25-34); Mean Corpuscular Hgb Conc 35.6 g/dL (32-36); Mean Corpuscular Volume 88.9 fL (80-100); Mean Platelet Volume 12.1 fL (7.4-10.4); Monocytes # (auto) 1.63 K/uL (0.11-0.59); Neutrophils # (auto) 9.15 K/uL (1.4-6.5); Neutrophils % (auto) 67.6 %; Platelet Count 170 K/uL (130-400); RDW Coefficient of Variation 12.7 % (11.5-14.5); RDW Standard Deviation 41.1 fL (36.4-46.3); Red Blood Count 5.52 M/uL (4.7-6.1); White Blood Count 13.54 K/uL (4.8-10.8)
[2020-05-08 06:20] LABS: Magnesium 2.3 mg/dl (1.8-2.4); Troponin I 69.2 ng/ml (0-0.045)
[2020-05-08 06:36] LABS: Estimated Average Glucose 269 mg/dl
[2020-05-08] MEDS: INSULIN ASPART 100 UNITS/ML 3 ML PEN SC SCH ×4 (07:58→20:29)
[2020-05-08] MEDS: INSULIN GLARGINE SOLOSTAR 100 UNITS/ML 3 ML PEN SC SCH ×2 (08:00→20:28)
[2020-05-08] MEDS: ATORVASTATIN 40 MG TAB PO SCH (08:03)
[2020-05-08] MEDS: ASPIRIN 81 MG ECTAB PO SCH (08:06)
[2020-05-08] MEDS: METOPROLOL TARTRATE 25 MG TAB PO SCH ×2 (08:06→20:28)
[2020-05-08] MEDS: lisinopriL 5 MG TAB PO SCH (08:06)
[2020-05-08] MEDS: MAGNESIUM OXIDE 400 MG TAB PO SCH ×2 (09:12→20:28)
--- NOTE | 2020-05-08 09:58 | XCELERA ---
[id number]
--- NOTE | 2020-05-08 11:05 | Cardiology Progress Note ---
Date of Service May 08, 2020 Assessment & Plan (1) Acute [place]: Occluded proximal circumflex post 3 PRESTON from circumflex into OM two 05/07 2. Residual severe distal RCA/posterior AV branch stenosis 3. Preserved LV function with lateral, inferolateral hypokinesis to akinesis 4. Type 2 [id number] 5. Dyslipidemia 6. Suspected obstructive sleep apnea 7. Mild to moderate mitral vegetation 8. Mild aortic insufficiency Patient largely chest pain-free. Troponin peaked overnight. Hemodynamically and electrically stable. No signs of heart failure on exam. No access site complications. Hemoglobin stable. Repeat BMP pending LV function preserved on echo. Plan for staged PCI of RCA today pending stable renal function. Please keep n.p.o. Continue DAPT with aspirin, ticagrelor Continue current lisinopril, metoprolol and high intensity statin If stable overnight possible discharge tomorrow with further discussion of cardiac rehab. Admission and Anticipated Discharge Date Admission Date: May 07, 2020 Subjective Feeling well this morning. Intermittent substernal chest pain overnight associated with belching and some pleuritic component. Pain resolved this morning. Telemetry reviewedno events Review of Systems Review of Systems: All systems reviewed & are unremarkable except as noted in HPI & below Physical Exam Physical Exam: General: Comfortable, no acute distress HEENT: Sclerae anicteric, mucous membranes moist Lungs: Clear to auscultation bilaterally, no rhonchi or wheezes Cardiac: Regular rate and rhythm, no murmurs. Abdomen: Soft, nontender, nondistended, positive bowel sounds. Extremities: Warm, well perfused, no edema. Right radial artery access site with no ecchymosis, hematoma. Distal pulse and sensation intact. Skin: No rashes or lesions. Neuro: Nonfocal Psych: Alert orient x3, normal affect and mood Results & Data ([facility]) Vital Signs (Past 12 Hours) Vital Signs Temp Pulse Pulse Pulse Resp BP Pulse Ox 05/08/20 10:44 98.2 F 74 20 108/70 95 05/08/20 07:09 99.3 F 71 16 118/78 95 05/08/20 03:51 98.6 F 64 16 121/80 95 05/08/20 00:01 67 05/07/20 23:42 98.8 F 68 20 115/68 96 PG Care Time/CCT Total # of Minutes Spent Total Time Spent with Patient: Total time spent is greater than 50% in coordination of care (as documented) at patient's floor/unit and/or counseling patient: Coding Level of Care Code 67930 Subseq Hosp Care Lvl 3 Diagnoses Acute [place] I21.9
[2020-05-08 11:18] LABS: BUN Creatinine Ratio 14.7 (10-20); Calcium 8.7 mg/dl (8.5-10.1); Est GFR (African American) 99.4; Est GFR (Non-African American) 85.7
--- NOTE | 2020-05-08 12:05 | Electrocardiogram Report ---
Test Reason : Blood Pressure : / mmHG Vent. Rate : 067 BPM Atrial Rate : 067 BPM P-R Int : 112 ms QRS Dur : 074 ms QT Int : 390 ms P-R-T Axes : 000 -43 -06 degrees QTc Int : 412 ms Normal sinus rhythm Left axis deviation Low voltage QRS Inferior infarct (cited on or before 07-MAY-2020) Lateral injury pattern ACUTE NC / STEMI Abnormal ECG When compared with ECG of 07-MAY-2020 13:47, No significant change was found Confirmed by Aric Joseph ([id number]) on 05/08/2020 12:05:40 PM Referred By: REFERRED SELF Confirmed By:Aric Joseph
--- NOTE | 2020-05-08 12:12 | Electrocardiogram Report ---
Test Reason : Blood Pressure : / mmHG Vent. Rate : 064 BPM Atrial Rate : 064 BPM P-R Int : 126 ms QRS Dur : 084 ms QT Int : 388 ms P-R-T Axes : 047 -04 015 degrees QTc Int : 400 ms Normal sinus rhythm Low voltage QRS Lateral injury pattern Abnormal ECG When compared with ECG of 07-MAY-2020 17:58, (unconfirmed) QRS axis Shifted right Criteria for Inferior infarct are no longer Present Confirmed by Aric Joseph ([id number]) on 05/08/2020 12:11:30 PM Referred By: REFERRED SELF Confirmed By:Aric Joseph
[2020-05-08] MEDS ORDERED: NiCARDipine HCL INJ 2.5 MG/ML 10 ML AMP ONE (12:16)
[2020-05-08] MEDS ORDERED: MIDAZOLAM HCL 1 MG/ML 2ML VIAL ONE (12:16)
[2020-05-08] MEDS ORDERED: HEPARIN (PORCINE) 1000 UNIT/ML 10 ML (CATH LAB USE ONLY) ONE (12:16)
[2020-05-08] MEDS ORDERED: fentaNYL citrate 100 MCG/2 ML VIAL ONE (12:16)
[2020-05-08] MEDS ORDERED: NITROGLYCERIN/D5W 100MCG/ML 20ML SYR ONE (12:17)
--- NOTE | 2020-05-08 14:30 | Post Anesthesia Assessment ---
Date of Service May 08, 2020 Post Sedation Assessment Vital Signs Temp Pulse Pulse Pulse Resp BP Pulse Ox 05/08/20 14:00 74 16 100/73 98 05/08/20 13:45 98.2 F 74 18 100/73 98 05/08/20 13:40 67 16 108/77 98 05/08/20 13:30 67 16 111/78 98 05/08/20 10:44 98.2 F 74 20 108/70 95 05/08/20 07:09 99.3 F 71 16 118/78 95 05/08/20 03:51 98.6 F 64 16 121/80 95 05/08/20 00:01 67 05/07/20 23:42 98.8 F 68 20 115/68 96 05/07/20 20:00 98.1 F 76 18 132/83 95 05/07/20 19:30 98.6 F 72 16 109/77 95 05/07/20 18:44 74 18 151/117 H 96 05/07/20 18:15 74 16 123/102 H 96 05/07/20 18:00 72 16 123/94 96 05/07/20 17:30 98.1 F 74 18 150/108 H 96 05/07/20 16:46 66 20 144/85 H 98 05/07/20 16:40 64 20 137/90 98 05/07/20 16:25 67 20 150/98 H 99 Recovery Score Activity: Moves 4 extremities Respiration: Deep Breath/Cough Circulation: +/-20% PreAnes Value Consciousness: Fully Awake Oxygen Saturation: > 92% On Room Air Post Anesthesia Score: 10 Discharge Sedation Level of Care: Fast Track Phase II Post Sedation Plan On clinical assessment, the patient appears to have tolerated the sedation without complications. Patient is recovering as anticipated. Patient will continue to be monitored by nursing and may be discharged when sedation discharge criteria are met per below protocol. Upon Completions of procedure up to 15 minutes continue every 5 minute vital signs and the P.A.R. score; then discharge to a Phase I or Fast Track to Phase II per the following guidelines: * Discharge Patient to appropriate Phase II area if PAR is 8 or greater or return to pre- procedure baseline. The post - procedure orders will be as directed. * If PAR score is less than 8 or not return to pre-procedure baseline then patient will follow Phase I monitoring till PAR is reached for Phase II. The Phase I may be done in procedure room or may call to secure a Phase I area. * If naloxone or flumazenil are used for reversal, hold in Phase I for continued monitoring from when last reversal dose was given for a minimum of 60 minutes or longer pending the nurse and/or physician discretion of patient condition before discharge to Phase II. Please call the Sedation Physician to re-evaluate and complete post-note for discharge to Phase II area. Do NOT discharge from procedure sedation or Phase 1 until post- sedation evaluation note is complete by procedure /sedation MD Sedation Discharge Instructions to be given to the patient at discharge to home.
--- NOTE | 2020-05-08 14:35 | Cardiac Catheterization ---
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 Cardiac Status Clinical evaluation leading to the procedure CAD Presenation: Non STEMI Anginal Classification: CCS III Heart Failure: No Cardiogenic Shock within 24 Hours: No Cardiac Arrest within 24 Hours: No Imaging Studies Past 6 Months: Yes Stress Studies Past 6 Months: No Diagnostic Physicians Name: Alejandro Rubin MD Status: Elective Closure Device Percutaneous Entry Location: Radial Closure Device: Radial Band Recommendations: PCI without planned CABG PCI Indication: Staged PCI Lesion Segment Name: Distal RCA Culprit Artery: No Stenosis Prior to Rx (%): 70 Chronic Total Occlusion: No IVUS: No FFR: No Pre-Procedure RUSTAM Flow: 3 Previously Treated Lesion: No Thrombus Present: No Bifurcation Lesion: Yes Guidewire Across Lesion: Stenosis Post-Procedure (%): 0 Post-Procedure RUSTAM Flow: 3 Devices(s) Deployed: Yes Yes Intraprocedure Events Significant Disection: No Perforation: No Cardiac Cath Procedure Full Procedure Date May 08, 2020 Pre-Procedure Diagnosis Pre-Procedure Diagnosis: Non STEMI AUC Score AUC Score: 8 Post-Procedure Diagnosis Post-Procedure Diagnosis: Severe CAD and Successful PCI Procedure(s) Performed Procedure(s) Performed: Drug Eluting Stent Deli/Bakery Associate Alejandro Rubin MD Plastic Straightening Roll Operator(s) Nida Estimated Blood Loss Estimated Blood Loss: 20 Medication(s) Medication(s): Fentanyl, Heparin, Lidocaine 1%, Nicardipine, Nitroglycerin and Versed Medication(s): Ticagrelor Summary of Findings Indication: Staged PCI of RCA Access: 6 Fr slender right radial artery Catheters: JR4 guide Findings: For full details of patient's coronary angiography please see cath report dictated from 05/07/2020. Briefly patient presented with an acute PR found to have an occluded proximal circumflex which was treated with 3 overlapping drug- eluting stents from proximal circumflex into OM 2. Was also noted to have severe diffuse RCA disease into right posterior AV branch. Patient brought back for staged PCI of RCA today. -- PCI -- Antithrombotic therapy: Heparin, ticagrelor Procedure: RCA cannulated with JR4 guide Cage Fighter 50 wire passed across lesion into distal vessel Distal RCA/posterior AV branch lesion predilated with 3.0 compliant balloon Dilated lesion stented with 4.0 x 38 mm Pyatt drug-eluting stent Stent post-dilated with 5.0 noncompliant balloon IC vasodilators administered for spasm Post procedure RUSTAM 3 flow, stent well expanded with minimal residual stenosis. No apparent edge dissection. Reduced flow and small PDA. No new symptoms. Flow improving with repeat injections. Arterial Closure: TR band Summary: 1. Successful PCI of distal RCA into right posterior AV branch with single drug- eluting stent (4.0 x 38 mm Pyatt; postdilated with 5.0 NC balloon) Recommendations: To PCU for continued monitoring Continue dual antiplatelet therapy with aspirin, ticagrelor for at least 1 year Hemodynamics Rest Ao:: 82/62/70 Final Ao: 93/67/80 LV: -- Recommendations Recommendations: PCI without planned CABG Specimens Specimens: None Radiation Exposure (mGy) 2690 Contrast (mls) 115 Fluids (cc crystalloids) Fluids (cc crystalloids): 80 Drains Drains: None Anesthesia Moderate Procedural Complication(s) None Disposition PCU I attest to the content of the Intraoperative Record and any orders documented therein. Any exceptions are noted below. [facility] Card Cath Procedure Codes Moderate Sedation Procedure 1: Sedation/Anesthesia: 95423 Mod Sedation by the same physician;Init15 Min Child Age 5 & Up Procedure 2: Sedation/Anesthesia: 32115 Mod Sedation by the same physician; Ea [id number] Minutes Stenting Procedure 1: Cardiovascular Stent Procedures: 75926 Perc transcatheter placement of intracoronary stent(s), with ang PG Care Time/CCT Total # of Minutes Spent Total Time Spent with Patient: Total time spent is greater than 50% in coordination of care (as documented) at patient's floor/unit and/or counseling patient:
[2020-05-08] MEDS ORDERED: PHARMACY GLYCEMIC MGMT CONSULT PRN (16:12)
--- NOTE | 2020-05-08 21:05 | Hospitalist Progress Note ---
Date of Service May 08, 2020 Assessment & Plan (1) STEMI (ST elevation myocardial infarction): Patient currently chest pain free after cardiac catheterization 100% acute occluded proximal circumflex culprit vessel with successful PCI of proximal circumflex into the OM2 with x3 overlapping drug-eluting stents Appreciate interventional cardiology management -discussed care with Dr. Rubin Aspirin 81 mg p.o. daily Brilinta 90 mg p.o. twice daily Metoprolol tartrate 25 mg twice daily Lisinopril 5 mg p.o. daily Atorvastatin 80 mg p.o. daily Monitor in PCU for arrhythmias HbA1c and lipid panel with a.m. labs TTE tomorrow Cardiac consult placed Additional severe single-vessel non-culprit coronary artery disease in RCA - This was also stented as stated below. Summary: 1. Successful PCI of distal RCA into right posterior AV branch with single drug- eluting stent (4.0 x 38 mm Mychal; postdilated with 5.0 NC balloon) Recommendations: To PCU for continued monitoring Continue dual antiplatelet therapy with aspirin, ticagrelor for at least 1 year (2) Hyperglycemia: Diabetes Mellitus type 2. Patient has underlying A1C of 11. (3) Polycythemia: Most likely secondary to obstructive sleep apnea. However given urgency with acute MS will send off JAK2 mutation labs in AM. If Hct > 45% with am labs recommend phlebotomy to aim < 45% and hematology follow up. Admission and Anticipated Discharge Date Admission Date: May 07, 2020 Subjective Patient reports feeling well. He is unsure if he can follow his diet at home, but will try with a stepwise approach. Review of Systems Review of Systems: All systems reviewed & are unremarkable except as noted in HPI & below Physical Exam Constitutional: WD/WN, vitals as above well developed and well nourished Eyes: PERRL, conjunctivae normal, anicteric sclerae ENMT: external ear and nose normal, oropharynx normal Neck: trachea midline, no thyromegaly Respiratory: normal respiratory effort, lungs clear to auscultation Cardiovascular: RRR, no murmur, no edema Gastrointestinal (Abdomen): normal bowel sounds, soft, nontender, no hepatosplenomegaly Musculoskeletal: no cyanosis or clubbing, extremities motor strength 5/5 Skin: no rashes, warm and dry Neurologic: PERRL, EOMI, accommodation nl, no face palsy, no dysarthria Psychiatric: A+Ox3, euthymic affect Results & Data Results & Data ([facility]) Vital Signs (Past 12 Hours) Vital Signs Temp Pulse Pulse Resp BP Pulse Ox 05/08/20 20:33 37.0 C 83 16 113/75 95 05/08/20 19:08 37.0 C 78 19 104/70 96 05/08/20 17:30 74 16 99/60 L 95 05/08/20 16:30 82 120/78 95 05/08/20 16:00 73 103/66 96 05/08/20 15:30 74 16 107/67 98 05/08/20 15:00 68 16 111/64 97 05/08/20 14:30 72 16 105/72 99 05/08/20 14:15 67 16 112/76 98 05/08/20 14:00 74 16 100/73 98 05/08/20 13:45 36.8 C 74 18 100/73 98 05/08/20 13:40 67 16 108/77 98 05/08/20 13:30 67 16 111/78 98 05/08/20 10:44 36.8 C 74 20 108/70 95 PG Care Time/CCT Total # of Minutes Spent Total Time Spent with Patient: Total time spent is greater than 50% in coordination of care (as documented) at patient's floor/unit and/or counseling patient: Coding Level of Care Code 39092 Subseq Hosp Care Lvl 3 Diagnoses STEMI (ST elevation myocardial infarction) I21.3 Hyperglycemia R73.9 Polycythemia D75.1 Time Spent (min) 35
[2020-05-09 06:39] LABS: BUN Creatinine Ratio 21.4 (10-20); Calcium 8.6 mg/dl (8.5-10.1); Creatinine Clr Calc Pharmacy 115.9 ml/min; Est GFR (Non-African American) 92.3; Potassium 3.7 mmol/L (3.5-5.1)
[2020-05-09] MEDS: INSULIN GLARGINE SOLOSTAR 100 UNITS/ML 3 ML PEN SC SCH (08:16)
[2020-05-09] MEDS: INSULIN ASPART 100 UNITS/ML 3 ML PEN SC SCH ×2 (08:16→11:37)
[2020-05-09] MEDS: TICAGRELOR 90 MG TAB PO SCH (08:17)
[2020-05-09] MEDS: lisinopriL 5 MG TAB PO SCH (08:17)
[2020-05-09] MEDS: ATORVASTATIN 40 MG TAB PO SCH (08:17)
[2020-05-09] MEDS: ASPIRIN 81 MG ECTAB PO SCH (08:17)
[2020-05-09] MEDS: MAGNESIUM OXIDE 400 MG TAB PO SCH (08:17)
[2020-05-09] MEDS: METOPROLOL TARTRATE 25 MG TAB PO SCH (08:17)
[2020-05-09 10:10] LABS: Hematocrit (blood only) 47.1 % (42-52); Hemoglobin 16.1 g/dL (14.0-18.0); Mean Corpuscular Hemoglobin 31.1 pg (25-34); Mean Corpuscular Hgb Conc 34.2 g/dL (32-36); Mean Corpuscular Volume 91.1 fL (80-100); Mean Platelet Volume 12.1 fL (7.4-10.4); Platelet Count 158 K/uL (130-400); RDW Coefficient of Variation 12.8 % (11.5-14.5); RDW Standard Deviation 42.6 fL (36.4-46.3); Red Blood Count 5.17 M/uL (4.7-6.1); White Blood Count 10.99 K/uL (4.8-10.8)
[2020-05-09 10:31] LABS: BUN Creatinine Ratio 20.1 (10-20); Calcium 8.2 mg/dl (8.5-10.1); Creatinine Clr Calc Pharmacy 106.9 ml/min; Est GFR (Non-African American) 83.7; Potassium 3.5 mmol/L (3.5-5.1)
--- NOTE | 2020-05-09 12:19 | Pharmacy Report ---
Pharmacy Glycemic Short Note 2 - Date of Service May 09, 2020 - Glycemic Short BSG Results (Last 24 hours): 05/08/20 05/08/20 05/08/20 13:58 16:01 19:59 Glucose POC Glucose 237 H 253 H 213 H 05/09/20 05/09/20 05/09/20 05:29 07:26 09:54 Glucose 175 H 207 H POC Glucose 171 H 05/09/20 11:23 Glucose POC Glucose 196 H OUTPATIENT ANTIDIABETIC REGIMEN: * N/A * A1c = 11% ASSESSMENT: * Patient admitted for STEMI * A1c discovered to be 11% this admission. No prior dx of T2DM. * Over the last 24 hrs, 76 units of SQ insulin administered - while patient tolerating a diet * Fasting BSG improving. FBS 171 this AM with 36 units of basal on board. * Post-prandial BSGs better controlled with increase in Novolog doses implemented yesterday - expect improved control as basal deficiency corrected * Would anticipate this patient to require 80-100 units of insulin per day to achieve glycemic targets with current stressors PLAN FOR INPATIENT GLYCEMIC CONTROL: * Basal insulin * Lantus 20 units SQ BID * Bolus insulin * NovoLog per scale ACHS or Q6hrs while NPO * Goal Range: Low 110 mg/dL - High 140 mg/dL * Correction Factor: 15 mg/dL/unit * Nutritional / Prandial insulin per carb ratio of 1 unit per 5 grams CHO consumed PLAN FOR DISCHARGE: * Given patient's A1c > 10, this patient will likely require 3 medications upon discharge in order to achieve glycemic targets (likely goal A1c < 7 given age, lack of comorbidities and recent STEMI). * Metformin XR 500mg PO daily with evening meal. Typically the XR formulation of metformin is better tolerated than the immediate release formulation. Continue to titrate metformin dosing upwards as recommended. B12 supple mentation may be necessary with fdc metformin * Basal insulin: Glargine 35 units SQ daily * GPL1RA (This will be based off of insurance coverage and patient preference of weekly vs daily injection) OR Prandial insulin: Novolog insulin 12 units SQ with meals * Support Patient Self-Management Healthy Lifestyle (diet, exercise, and smoking cessation) Disease self-management (SMBG) Prevention of complications (BP, Lipid goals, Immunizations) Consider outpatient Diabetes Self-Management Education & Support Most patients on multiple-dose insulin (MDI) should SMBG Prior to meals and snacks At bedtime Prior to exercise When they suspect low blood glucose After treating low blood glucose until they are normoglycemic Prior to critical tasks such as driving Occasionally postprandially
--- NOTE | 2020-05-09 13:00 | Cardiology Progress Note ---
Date of Service May 09, 2020 Assessment & Plan (1) Acute [place]: Occluded proximal circumflex post 3 PRESTON from circumflex into OM2 05/07 2. Residual severe distal RCA/posterior AV branch stenosispost staged PCI 05/08 3. Preserved LV function with lateral, inferolateral hypokinesis to akinesis 4. Type 2 [id number] 11 5. Dyslipidemia 6. Suspected obstructive sleep apnea 7. Mild to moderate mitral vegetation 8. Mild aortic insufficiency Patient stable from a cardiac standpoint. No exit site complications. Post procedure labs stable. From a cardiac standpoint okay with discharge today. Home on DAPT with aspirin, ticagrelor Continue current metoprolol, lisinopril and high intensity statin. Follow-up with cardiology in 2 weeks. Further discussion regarding cardiac rehab, endocrine/nutrition at that time. Admission and Anticipated Discharge Date Admission Date: May 07, 2020 Subjective Doing well today. Denies any chest pain. Minimal wrist pain. No other new concerns. Telemetry reviewedno events. Review of Systems Review of Systems: All systems reviewed & are unremarkable except as noted in HPI & below Physical Exam Physical Exam: General: Comfortable, no acute distress HEENT: Sclerae anicteric, mucous membranes moist Lungs: Clear to auscultation bilaterally, no rhonchi or wheezes Cardiac: Regular rate and rhythm, no murmurs. Abdomen: Soft, nontender, nondistended, positive bowel sounds. Extremities: Warm, well perfused, no edema. Right radial artery access site with no ecchymosis, hematoma. Distal pulse and sensation intact. Skin: No rashes or lesions. Neuro: Nonfocal Psych: Alert orient x3, normal affect and mood Results & Data ([facility]) Vital Signs (Past 12 Hours) Vital Signs Temp Pulse Resp BP Pulse Ox 05/09/20 11:49 97.7 F 66 16 98/76 L 98 05/09/20 07:48 97.7 F 65 16 102/68 95 05/09/20 03:23 97.7 F 71 18 97/68 L 96 PG Care Time/CCT Total # of Minutes Spent Total Time Spent with Patient: Total time spent is greater than 50% in coordination of care (as documented) at patient's floor/unit and/or counseling patient: Coding Level of Care Code 41447 Subseq Hosp Care Lvl 3 Diagnoses Acute [place] I21.9
[2020-05-09] MEDS ORDERED: INSULIN GLARGINE SOLOSTAR 100 UNITS/ML 3 ML PEN SC SCH (21:00)
--- NOTE | 2020-05-16 10:56 | Discharge Summary ---
Date of Service May 09, 2020 Admission HPI Per Admitting Provider Jaylan Kelly is a 50 year old male who presented to the ER with substernal chest pain radiating around both sides of his chest. This started at 8-8:30 PM last night and was the most severe it is being at this time at this time. Associated shortness of breath, diaphoresis, belching. He was sent home from work but continued to have intermittent pain overnight but eventually managed to get to sleep. Upon waking this morning he continued to have chest pain worse on exertion. He smokes occasionally. Does not follow regularly with a PCP. Notes excessive snoring at nighttime but no diagnosed obstructive sleep apnea. No known prior coronary artery disease. Significant family history with his father having an WA in his 50s requiring bypass surgery. His older brother now had a cardiac arrest with suspected massive WA in his early 40s. In the ER he was having dynamic ST elevation changes anteriorly with reciprocal ST depressions inferiorly. He was taken emergently to the [facility] by Dr. Rubin showing severe coronary artery disease with 100% acute occluded proximal circumflex with successful PCI x3 PRESTON. Discussed his care after his cardiac cath with Dr. Rubin. The patient was first seen by myself in the PCU. Principal Diagnosis STEMI Discharge Exam Constitutional: WD/WN, vitals as above well developed and well nourished Eyes: PERRL, conjunctivae normal, anicteric sclerae ENMT: external ear and nose normal, oropharynx normal Neck: trachea midline, no thyromegaly Respiratory: normal respiratory effort, lungs clear to auscultation Cardiovascular: RRR, no murmur, no edema Gastrointestinal (Abdomen): normal bowel sounds, soft, nontender, no hepatosplenomegaly Musculoskeletal: no cyanosis or clubbing, extremities motor strength 5/5 Skin: no rashes, warm and dry Neurologic: PERRL, EOMI, accommodation nl, no face palsy, no dysarthria Psychiatric: A+Ox3, euthymic affect Discharge Data Allergies Allergy/AdvReac Type Severity Reaction Status Date / Time No Known Allergies Allergy Mild Unverified 05/16/20 11:25 Consultations 05/07/20 14:06 Consult Cardiac Catheterization Stat ED Decision to Admit Stat 05/07/20 16:49 Consult Cardiac Rehabilitation Routine Procedures Performed Operation Date: 05/07/20 14:00 Actual Procedures p Drug Eluting Stent SGl Vessel - Jey Rubin MD s Cath, Left with Cors and Vent - Jey Rubin MD s Cineradiography w/Routine Exam - Jey Rubin MD Operation Date: 05/08/20 12:15 Actual Procedures s Cineradiography w/Routine Exam - Jey Rubin MD p Drug Eluting Stent SGl Vessel - Jey Rubin MD Ordered Studies 05/07/20 13:59 CL Cath Imgs for PACS use only Stat 05/08/20 12:11 CL Cath Imgs for PACS use only Stat Diabetes Follow up Diabetes Follow-up Needed for HgbA1c >9%,Newly Diagnosed Diabetes Hospital Course (1) STEMI (ST elevation myocardial infarction): Patient currently chest pain free after cardiac catheterization 100% acute occluded proximal circumflex culprit vessel with successful PCI of proximal circumflex into the OM2 with x3 overlapping drug-eluting stents Appreciate interventional cardiology management -discussed care with Dr. Rubin Aspirin 81 mg p.o. daily Brilinta 90 mg p.o. twice daily Metoprolol tartrate 25 mg twice daily Lisinopril 5 mg p.o. daily Atorvastatin 80 mg p.o. daily Monitor in PCU for arrhythmias HbA1c and lipid panel with a.m. labs TTE tomorrow Cardiac consult placed Additional severe single-vessel non-culprit coronary artery disease in RCA - This was also stented as stated below. Summary: 1. Successful PCI of distal RCA into right posterior AV branch with single drug- eluting stent (4.0 x 38 mm Mychal; postdilated with 5.0 NC balloon) Recommendations: To PCU for continued monitoring Continue dual antiplatelet therapy with aspirin, ticagrelor for at least 1 year. Will also be discharged on lisinopril, metoprolol succinate and Atorvastatin as stated above. (2) Hyperglycemia: Diabetes Mellitus type 2. Patient has underlying A1C of 11. will be discharged on triple therapy. Rybelsus, metformin and lantus. Metformin should be titrated up as outpatient. (3) Polycythemia: Most likely secondary to obstructive sleep apnea. However given urgency with acute WA will send off JAK2 mutation labs in AM. If Hct > 45% with am labs recommend phlebotomy to aim < 45% and hematology follow up. Total Time Total Time Spent Total Time Spent (In Minutes): 35 Total Time Includes: Examination of the Patient, Discharge Planning and Medication Reconciliation Discharge Plan Discharge Items Patient Disposition: Home - Self-Care Reason For Visit: ACS Discharge Diagnosis: acute coronary syndrome Activity: Resume your previous activity Non-emergency contact: Primary Care Provider Call non-emergency contact if: you have any medication questions Follow-up/Referrals: Brian Hogan, [Physician] - 05/16/20 11:00 am (Primary Care Appointment has been made with Dr. Brian Hogan on , 05/16/2020. Please arrive at 11:00. You have a Nurse appointment arranged for 11:15. Dr. Hogan will see you at 11:30 [address] [place] [address] If appointment time needs changed please call [phone]. Thank you.) Diet: Regular Addtl Attending Provider Instructions: Home Care: * Take your medications exactly as directed. Don't skip doses. * Remember that recovery after a heart attack takes time. Plan to rest for at lease 4-8 weeks while you recover. Then return to normal activity when your doctor says it's okay. * Ask your doctor about joining a heart rehabilitation program. * Tell your doctor if you are feeling depressed. Feelings of sadness are common after a heart attack, but it is important that you speak to someone if you are feeling overwhelmed by these feelings. * If you are having chest pain, call 911 for an ambulance. Do NOT drive yourself to the hospital. * Ask your family members to learn CPR. * Learn to take your own blood pressure and pulse. Keep a record of your results. Ask your doctor when you should seek emergency medical attention. He or she will tell you which blood pressure reading is dangerous. Lifestyle Changes: * Maintain a healthy weight. Get help to lose any extra pounds. * Cut back on salt. * Limit canned, dried, packaged, and fast foods. * Don't add salt to your food. * Season foods with herbs instead of salt when you cook. * Break the smoking habit. Enroll in a stop-smoking program to improve your chances of success. * Limit fatty foods. * Ask your doctor about having your lipid levels checked regularly. * Build up your activity according to your doctor's recommendation. * Ask your doctor when it's okay to resume sexual activity. * Tell your doctor about any erectile dysfunction (ED) medication you are taking. Some ED medications are not safe if you take certain heart medications. * Try to manage stress. Follow Up: It is important for you to keep your follow up appointments with your medical provider. Follow-up with cardiology in 2 weeks. Further discussion regarding cardiac rehab, endocrine/nutrition at that time. Start all medications tomorrow EXCEPT metoprolol succinate which will be today. Pending Studies at Discharge: No Stand-Alone Forms: My [facility], Smoking Cessation Medications and DC Order Prescriptions: New Brilinta 90 mg Tablet 90 mg PO BID Qty: 60 RF: 0 atorvastatin 40 mg Tablet 80 mg PO QPM Qty: 30 RF: 0 lisinopril 5 mg tablet 5 mg PO DAILY Qty: 30 RF: 0 nitroglycerin [Nitrostat] 0.4 mg Tablet, Sublingual 0.4 mg sublingual Q5M PRN (Reason: chest pain) Qty: 5 RF: 0 aspirin 81 mg Tablet,Delayed Release (Dr/Ec) 81 mg PO QAM Qty: 30 RF: 0 (DME) pen needle, diabetic [Comfort EZ Pen [place]] 32 gauge x 5/32" needle See Rx Instructions .ROUTE .MEDSUPPLY Qty: 100 RF: 0 (DME) lancets [OneTouch Delica Plus Lancet] 33 gauge misc See Rx Instructions .ROUTE .MEDSUPPLY Qty: 100 RF: 0 Rybelsus 3 mg tablet 3 mg PO DAILY 30 Days Qty: 30 RF: 0 metformin 500 mg tablet extended release 24 hr 500 mg PO DAILY Qty: 30 RF: 0 metoprolol succinate 50 mg tablet extended release 24 hr 50 mg PO PM Qty: 30 RF: 0 Lantus Solostar U-100 Insulin 100 unit/mL (3 mL) insulin pen 35 unit subcut QAM Qty: 15 RF: 0 Discontinued None (Patient States No Home Meds) . Qty: 0 RF: 0 None (Patient States No Home Meds) . Qty: 0 RF: 0 No Action (DME) blood sugar diagnostic [OneTouch Verio test strips] Strip See Rx Instructions .ROUTE .MEDSUPPLY RF: 0 Discharge Orders: Discharge Order (Routine); Ordered 05/09/20 Ordered By: Vasiliy Braga Admission Data Admit Date/Time: 05/07/20 16:50 Attending Provider: Vasiliy Braga Admit Provider: Jey Rubin Primary Care Provider: PCP,NO Other Providers: Jey Rubin Other Interventions: Discharge Summary Assessment (RN) Last Done: 05/09/20 15:33 Coding Level of Care Code D/C Day Management >30 mins Diagnoses STEMI (ST elevation myocardial infarction) I21.3 Hyperglycemia R73.9 Polycythemia D75.1 Time Spent (min) 35
== END 2020-05-09 16:06 | disposition home or self-care (01) | DRG 247 ==
LOC: ED 12:19 → CC 14:00 → 2E 16:50 → SUATTDRO 16:50

== ENCOUNTER 2020-11-13 17:54 | Inpatient (IN) ==
[2020-11-13] MEDS ORDERED: SODIUM CHLORIDE 0.9% 1000ML 1,000 ML IV STA (18:24)
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
[2020-11-13 18:49] LABS: Basophils # (auto) 0.05 K/uL (0-0.2); Basophils % (auto) 0.5 %; Eosinophils # (auto) 0.16 K/uL (0-0.5); Eosinophils % (auto) 1.5 %; Hematocrit (blood only) 41.7 % (42-52); Hemoglobin 14.7 g/dL (14.0-18.0); Immature Granulocytes # (auto) 0.02 K/uL (0.00-0.02); Immature Granulocytes % (auto) 0.2 %; Lymphocytes # (auto) 2.09 K/uL (1.2-3.4); Lymphocytes % (auto) 20.2 %; Mean Corpuscular Hemoglobin 31.5 pg (25-34); Mean Corpuscular Hgb Conc 35.3 g/dL (32-36); Mean Corpuscular Volume 89.5 fL (80-100); Mean Platelet Volume 10.9 fL (7.4-10.4); Monocytes # (auto) 0.99 K/uL (0.11-0.59); Monocytes % (auto) 9.6 %; Neutrophils # (auto) 7.05 K/uL (1.4-6.5); Platelet Count 324 K/uL (130-400); RDW Coefficient of Variation 13.8 % (11.5-14.5); RDW Standard Deviation 44.7 fL (36.4-46.3); Red Blood Count 4.66 M/uL (4.7-6.1); White Blood Count 10.36 K/uL (4.8-10.8)
[2020-11-13 19:03] LABS: INR 1.1 (0.9-1.1); Partial Thromboplastin Ratio 0.9; Partial Thromboplastin Time 22.8 Seconds (21.0-31.0); Prothrombin Time 10.8 Seconds (9.0-12.0)
[2020-11-13 19:06] LABS: Alanine Aminotransferase 38 U/L (12-78); Aspartate Aminotransferase 18 U/L (15-37); BUN Creatinine Ratio 21.2 (10-20); Blood Urea Nitrogen 36 mg/dl (7-18); Carbon Dioxide 21 mmol/L (21-32); Chloride 100 mmol/L (98-107); Est GFR (African American) 52.6; Est GFR (Non-African American) 45.4; Glucose 152 mg/dl (70-99); Lipase 166 U/L (73-393); Potassium 3.9 mmol/L (3.5-5.1); Sodium 133 mmol/L (136-145)
[2020-11-13 19:11] LABS: Alkaline Phosphatase 69 U/L (45-117); Bilirubin,Total 2.2 mg/dl (0.2-1); Globulin 4.2 gm/dl (2.5-4.0); Total Protein 8.2 gm/dl (6.4-8.2); Troponin I < 0.015 ng/ml (0-0.045)
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
[2020-11-13] MEDS ORDERED: MoRPHine SULFATE 2 MG/ML CARP IV PRN (20:23)
[2020-11-13] MEDS ORDERED: ONDANSETRON INJ 2 MG/ML 2 ML VIAL IV PRN ×2 (20:23→22:17)
[2020-11-13] MEDS: LACTATED RINGER'S 1,000 ML IV SCH (20:24)
--- NOTE | 2020-11-13 20:58 | XRay Report ---
XR chest 1V portable HISTORY: 50 years-old Male pre-op preoperative exam COMPARISON: CT abdomen pelvis 10/24/2020, chest radiograph 05/07/2020 TECHNIQUE: Portable AP view of the chest FINDINGS: Cardiomediastinal and hilar silhouettes are within normal limits. No pneumothorax, pleural effusion, airspace consolidation or overt pulmonary edema. Spondylitic spurring of the spine. Dilated air-fille d loops of small bowel project over the upper abdomen. IMPRESSION: No acute process. ACT 112: Negative or not required by law. The above report was generated using voice recognition software. It may contain grammatical, syntax o r spelling errors. Electronically signed by: Carlos Isaacs M.D. 11/13/2020 8:57 PM
[2020-11-13] MEDS ORDERED: BUPIVACAINE/EPINEPHRINE 0.5% MPF 1:200,000 30 ML VIAL ONE (21:56)
--- NOTE | 2020-11-13 22:08 | Anesthesiology Consultation ---
Date of Service November 13, 2020 Assessment & Plan (1) Encounter for pre-operative examination: Chart Review Chart Review: Acceptable Risk for Surgery and Patient NOT seen in Pre Admission Testing Consults Requested none ASA [id number] Proposed Anesthesia Anesthesia Type: General Risk / Benefits Reviewed With: PT / POA / Parent / Guardian, Accepts Plan and Informed Consent Obtained History Surgery Operation Date: 11/13/20 23:00 Proposed Procedures p Umbilical Hernia Repair - Robert Burkett, Height/Weight Height: 6 ft Weight: 85.4 kg Allergies Allergy/AdvReac Type Severity Reaction Status Date / Time No Known Allergies Allergy Mild Verified 10/09/20 14:04 Medications Home Medications Medication Instructions Recorded Confirmed Last Taken nitroglycerin [Nitrostat] 0.4 mg SUBLINGUAL Q5M PRN #5 tab 05/09/20 10/16/20 Unknown famotidine 20 mg tablet 20 mg PO DAILY PRN 05/21/20 10/16/20 Unknown atorvastatin 80 mg tablet 80 mg PO DAILY #90 tab 08/06/20 10/16/20 Unknown lisinopril 5 mg tablet 5 mg PO DAILY #10 tab 08/07/20 10/16/20 Unknown metformin 500 mg tablet,extended 1,000 mg PO DAILY #20 tab 08/07/20 10/16/20 Unknown release 24 hr metoprolol succinate 50 mg 50 mg PO DAILY #10 tab 08/07/20 10/16/20 Unknown tablet,extended release 24 hr ticagrelor 90 mg tablet 90 mg PO BID #20 tab 08/07/20 10/16/20 Unknown lancets 33 gauge #400 ea 08/29/20 10/16/20 Unknown pen needle, diabetic 32 gauge x #100 ea 08/29/20 10/16/20 Unknown /32" insulin glargine 100 unit/mL (3 8 unit SUBCUT QAM #9 syr 09/27/20 10/16/20 Unknown mL) subcutaneous pen blood sugar diagnostic ea 10/09/20 10/16/20 Unknown aspirin 81 mg tablet,delayed 81 mg PO QAM #90 tab 10/28/20 10/28/20 Unknown release metaxalone 800 mg tablet 800 mg PO TID PRN #30 tab 10/28/20 10/28/20 Unknown semaglutide 14 mg tablet 14 mg PO DAILY #90 tab 10/28/20 10/28/20 Unknown Active Medications Generic Name Dose Route Start Last Admin Trade Name Abhishek PRN Reason Stop Dose Admin Lactated Ringer's 1,000 mls @ 125 mls/hr 11/13/20 20:00 11/13/20 20:24 Lr IV 12/13/20 19:59 125 mls/hr .Q8H VALARIE Administration NPO Date Last Intake of Fluids: 11/13/20 Time Last Intake of Fluids: 14:00 Date Last Intake of Solids: 11/12/20 Time Last Intake of Solids: 07:00 Past Medical History Medical History Acute coronary syndrome Hypertension Kidney stone Patient denies medical problems Severe sleep apnea Sleep apnea in adult STEMI (ST elevation myocardial infarction) Umbilical hernia Exercise / Class Metabolic Activity II 4-5 Yardwork/Stairs/Walk up hill Past Family History Family History Mother Pancreatic cancer Liver cancer Father Diabetes Coronary heart disease Myocardial infarction, Onset Age: 51 Brother Coronary heart disease Myocardial infarction, Onset Age: 42 Denies family history of Ovarian cancer Prostate cancer Breast cancer Lung cancer Colorectal cancer Past Surgical History Surgical History No significant past surgical history Past Anesthesia History No Hx of Anesthesia Complications and No Family Hx of Anesthesia Complications History of PONV No Hx of PONV and No Hx of Motion Sickness Social History Smoking Status: Former smoker Hx Alcohol Use: Yes Alcohol type: beer alcohol intake frequency: a few times a month Hx Substance Use: No substance use type: does not use Last Used Substance Other:: smoked years ago. has quit. Physical Exam Vital Signs Last Vital Signs Temp 36.2 C L 11/13/20 17:56 Pulse 89 11/13/20 21:34 Resp 17 11/13/20 21:34 BP 110/77 11/13/20 21:34 Pulse Ox 97 11/13/20 21:34 ENMT Mouth: no dentition abnormality Thyromental Distance: > or= 3.5 Finger Breadths Mallampati Class: II Neck normal visual inspection Respiratory normal respiratory effort Auscultation: lungs clear to auscultation bilaterally Cardiovascular Rate/Rhythm: regular rate and regular rhythm Psychiatric Orientation: alert Testing Laboratory Results 11/13/20 18:39 11/13/20 18:39 PT 10.8 Seconds (9.0-12.0) 11/13/20 18:39 INR 1.1 (0.9-1.1) 11/13/20 18:39 APTT 22.8 Seconds (21.0-31.0) 11/13/20 18:39
[2020-11-13] MEDS ORDERED: ROCURONIUM BROMIDE 10 MG/ML 5 ML VIAL IV ONE (22:12)
[2020-11-13] MEDS ORDERED: fentaNYL citrate 100 MCG/2 ML VIAL ONE (22:12)
[2020-11-13] MEDS ORDERED: PROPOFOL IV EMULSION 10 MG/ML 20 ML VIAL IV ONE (22:12)
[2020-11-13] MEDS ORDERED: DEXAMETHASONE SOD INJ 4 MG/ML VIAL ONE (22:12)
[2020-11-13] MEDS ORDERED: LIDOCAINE 2% 2 ML VIAL/AMP(20MG/ML) INFIL ONE (22:12)
[2020-11-13] MEDS ORDERED: MIDAZOLAM HCL 1 MG/ML 2ML VIAL ONE (22:12)
[2020-11-13] MEDS ORDERED: ONDANSETRON INJ 2 MG/ML 2 ML VIAL ONE (22:12)
[2020-11-13] MEDS ORDERED: fentaNYL citrate 100 MCG/2 ML VIAL IV PRN (22:17)
[2020-11-13] MEDS ORDERED: HYDROmorphone INJ 2 MG/ML SYR/VIAL IV PRN (22:17)
[2020-11-13] MEDS ORDERED: PROMETHAZINE HCL 6.25 MG in SODIUM CHLORIDE 0.9% 50 ML IV PRN (22:17)
[2020-11-13] MEDS ORDERED: ATROPINE SULFATE 0.1 MG/ML 10ML SYR IV PRN (22:17)
[2020-11-13] MEDS ORDERED: ePHEDrine sulfate 50 MG/ML AMP IV PRN (22:17)
[2020-11-13] MEDS ORDERED: cefOXitin 2,000 MG in DEXTROSE 5% 50 ML IV STA (23:01)
[2020-11-13] MEDS ORDERED: GLYCOPYRROLATE 0.2 MG/ML VIAL ONE (23:10)
[2020-11-13] MEDS ORDERED: ePHEDrine sulfate 50 MG/ML AMP ONE (23:10)
[2020-11-13] MEDS ORDERED: NEOSTIGMINE METHYLSULFATE 5 MG/5 ML SYR ONE (23:10)
[2020-11-13] MEDS ORDERED: PHENYLEPHRINE 100MCG/ML 5ML SYR ONE (23:10)
[2020-11-13] MEDS ORDERED: PHENYLEPHRINE HCL 10 MG/ML VIAL ONE (23:10)
--- NOTE | 2020-11-13 23:28 | Post Operative Brief Note ---
PG Immediate Post Op with CF Date of Surgery November 13, 2020 Pre & Post Diagnosis Operation Date: 11/13/20 23:00 Pre-Op Diagnosis: Incarcerated Umbilical hernia. Post-Op Diagnosis: Incarcerated Umbilical hernia. I identified the patient and participated in the time-out.: Yes Procedure Operation Date: 11/13/20 23:00 Actual Procedures p Open Umbilical Hernia Repair - Robert Burkett DO Surgeon Robert Burkett DO Temperature Control Inspector Romie Jones PA-C Estimated Blood Loss 5 Findings See Below 1.2cm umbilical hernia with incarcerated small bowel and omentum Fluids 1200ml crystalloid Specimens Specimen Description: A Umbical hernia sac. Anesthesia Type General Complications none Disposition Disposition: Recovery Room
--- NOTE | 2020-11-13 23:34 | Operative Report ---
PG Post Operative Report Pre & Post Diagnosis Operation Date: 11/13/20 23:00 Pre-Op Diagnosis: Incarcerated Umbilical hernia Small bowel obstruction Post-Op Diagnosis: Incarcerated Umbilical hernia Small bowel obstruction I identified the patient and participated in the time-out.: Yes Procedure Operation Date: 11/13/20 23:00 Actual Procedures p Open Primary Umbilical Hernia Repair - Robert Burkett DO Surgeon Robert Burkett DO Deicer Repairer Pneumatic Romie Jones PA-C Estimated Blood Loss 5 Findings See Below 1.2cm umbilical hernia with small bowel and omentum Fluids 1200mL Specimens Hernia sac to pathology Drains None Anesthesia Type General Complications none Disposition Disposition: Recovery Room Indications 50 yo male with small bowel obstruction secondary to incarcerated umbilical hernia Description of Procedure The patient was brought to the OR and placed in the supine position with both arms abducted. At this time he underwent general endotracheal anesthesia without any problems. The hernia was then able to be reduced with manual pressu re. He was given appropriate pre-operative antibiotics. His abdomen was prepped and draped in the usual sterile fashion. Timeout was called. The procedure was verified as Open umbilical hernia repair, possible mesh, possible exploratory laparotomy, possible bowel resection. Surgical, anesthesia and nursing teams agreed and the procedure was begun. After injection of 0.25% Marcaine with epinephrine, a infraumbilical curvilinear incision was made using a #15 blade scalpel. This was carried down to the fascia using electrocautery. The umbilical stalk was then encircled using a Mayelin clamp. The hernia sac was then dissected off of the umbilical skin using blunt and sharp dissection and contents were reduced. The hernia sac was removed. At this point the defect was apparent and measured 1.2cm. The fascia was then cleared of any tissue so that healthy tissue could be used for repair. The defect was then closed using simple interrupted 0-PDS suture. The wound was then irrigated until clear. Hemostasis was achieved using electrocautery. Hemostasis was complete. The umbilicus was then tacked down to the fascia using 3-0 Vicryl. 3-0 Vicryl was used to close the deep dermal layer and 4-0 Monocryl was used to close the skin in a running subcuticular fashion. Sterile dressing was applied. All needle and sponge counts were correct x 2. At this point the patient was awakened from anesthesia, extubated and transported to PACU in stable condition. I attest to the content of the Intraoperative Record and any orders documented therein. Any exceptions are noted below.
--- NOTE | 2020-11-13 23:48 | Anesthesiology Progress Note ---
Date of Service November 13, 2020 Anesthesia Post Procedure Vital Signs Vital Signs: Temp Pulse Pulse Resp BP BP Pulse Ox 11/13/20 21:34 89 17 110/77 97 11/13/20 20:13 93 H 15 109/82 98 11/13/20 19:14 99 H 18 100/71 96 11/13/20 17:56 36.2 C L 121 H 20 111/73 97 Transfer of Care Handoff Completed per policy Notes Mental Status: alert / awake / arousable Patient Amnestic to Procedure: Yes Nausea / Vomiting: adequately controlled Pain: adequately controlled Airway Patency, RR, SpO2: stable & adequate BP & HR: stable & adequate Hydration State: stable & adequate Anesthetic Complications: no major complications apparent
[2020-11-14] MEDS ORDERED: NITROGLYCERIN SL 0.4 MG/TAB TAB SL PRN (00:49)
[2020-11-14] MEDS ORDERED: oxyCODONE HCL IR 5 MG TAB (IMMEDIATE RELEASE) PO PRN (00:49)
[2020-11-14] MEDS ORDERED: GLUCAGON FOR INJ 1 MG VIAL IM PRN (01:00)
[2020-11-14] MEDS ORDERED: CARBOHYDRATES FOR HYPOGLYCEMIA PO PRN (01:00)
[2020-11-14] MEDS ORDERED: GLUCOSE 10 TABS/TUBE PO PRN (01:00)
[2020-11-14] MEDS ORDERED: DEXTROSE 50% 50 ML SYRINGE IV PRN (01:00)
[2020-11-14] MEDS ORDERED: GLUCOSE 40% GEL 15 GM TUBE PO PRN (01:00)
[2020-11-14] MEDS: ACETAMINOPHEN 1,000 MG/100 ML VIAL IV SCH ×3 (01:46→17:23)
[2020-11-14] MEDS: INSULIN ASPART 100 UNITS/ML 3 ML PEN SC SCH ×5 (01:53→21:46)
--- NOTE | 2020-11-14 08:07 | Surgery Progress Note ---
Date of Service November 14, 2020 Assessment & Plan (1) Hernia, umbilical, with obstruction: (2) SBO (small bowel obstruction): -Start clears -Pain control PRN -Encourage ambulation/IS -Await return of bowel function -Appreciate medicine input -Continue home meds including DAPT Admission and Anticipated Discharge Date Admission Date: November 13, 2020 Subjective Pt seen and examined. Afebrile. Pain controlled. No N/V. Is passing small amount of flatus. No BM. Review of Systems Constitutional: no fever and no chills Physical Exam Constitutional: WD/WN, vitals as above Gastrointestinal (Abdomen): Percussion/Palpation: + abdomen tender (appropriately TTP) and abdomen soft; no guarding and abdomen not rigid Dressing c/d/i Results & Data ([facility]) Vital Signs (Past 12 Hours) Vital Signs Temp Pulse Pulse Resp BP Pulse Ox 11/14/20 06:57 36.5 C 66 18 110/68 95 11/14/20 04:00 36.6 C 73 16 96/59 L 95 11/14/20 02:00 74 18 102/65 95 11/14/20 01:50 71 11/14/20 01:38 36.3 C L 77 16 109/69 96 11/14/20 01:03 37 C 79 18 122/77 99 11/14/20 00:16 36.3 C L 73 18 105/61 97 11/14/20 00:06 36.4 C L 66 94/64 L 99 11/13/20 23:56 36.5 C 77 18 104/72 99 11/13/20 23:46 36.5 C 79 16 94/65 L 98 11/13/20 23:36 36.8 C 71 18 99/57 L 98 11/13/20 21:34 89 17 110/77 97 11/13/20 20:13 93 H 15 109/82 98 PG Care Time/CCT Total # of Minutes Spent Total Time Spent with Patient: Total time spent is greater than 50% in coordination of care (as documented) at patient's floor/unit and/or counseling patient: Coding Level of Care Code None Diagnoses Hernia, umbilical, with obstruction K42.0 SBO (small bowel obstruction) K56.609
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
[2020-11-14] MEDS: ATORVASTATIN 40 MG TAB PO SCH (08:59)
[2020-11-14] MEDS: METOPROLOL SUCC 50MG EXT REL TAB PO SCH (08:59)
[2020-11-14] MEDS: ASPIRIN 81 MG ECTAB PO SCH (08:59)
[2020-11-14] MEDS: TICAGRELOR 90 MG TAB PO SCH ×2 (08:59→21:33)
[2020-11-14] MEDS: LACTATED RINGER'S 1,000 ML IV SCH ×3 (09:10→21:33)
[2020-11-14 09:11] LABS: Hematocrit (blood only) 36.4 % (42-52); Hemoglobin 12.7 g/dL (14.0-18.0); Mean Corpuscular Hemoglobin 31.4 pg (25-34); Mean Corpuscular Hgb Conc 34.9 g/dL (32-36); Mean Corpuscular Volume 89.9 fL (80-100); Mean Platelet Volume 10.2 fL (7.4-10.4); Platelet Count 271 K/uL (130-400); RDW Coefficient of Variation 13.7 % (11.5-14.5); RDW Standard Deviation 44.9 fL (36.4-46.3); Red Blood Count 4.05 M/uL (4.7-6.1); White Blood Count 8.55 K/uL (4.8-10.8)
[2020-11-14 09:37] LABS: BUN Creatinine Ratio 31.4 (10-20); Calcium 8.9 mg/dl (8.5-10.1); Creatinine Clr Calc Pharmacy 100.8 ml/min; Est GFR (African American) 95.9; Est GFR (Non-African American) 82.7; Potassium 4.2 mmol/L (3.5-5.1)
[2020-11-14] MEDS: PANTOprazole 40 MG TAB PO SCH (10:11)
[2020-11-14] MEDS: LIDOCAINE 5% 1 PATCH TD SCH (11:07)
[2020-11-14 14:32] LABS: Appearance Urine Clear (Clear); Bilirubin Urine Negative (Negative); Blood Urine Negative (Negative); Color Urine Yellow; Glucose Urine UA 1+ (Negative); Ketones Urine Trace (Negative); Leukocyte Esterase Urine Negative (Negative); Nitrite Urine Negative (Negative); Protein Urine Negative (Negative); Specific Gravity Urine 1.032 (1.000-1.030); Urobilinogen Urine Negative (Negative)
--- NOTE | 2020-11-14 16:46 | Electrocardiogram Report ---
Test Reason : Blood Pressure : / mmHG Vent. Rate : 094 BPM Atrial Rate : 094 BPM P-R Int : 138 ms QRS Dur : 070 ms QT Int : 346 ms P-R-T Axes : 063 053 079 degrees QTc Int : 432 ms Normal sinus rhythm possble old posterior [place] Abnormal ECG When compared with ECG of 08-MAY-2020 00:15, Questionable change in QRS axis ST no longer depressed in Inferior leads ST no longer elevated in Lateral leads Nonspecific T wave abnormality no longer evident in Inferior leads Nonspecific T wave abnormality now evident in Lateral leads Confirmed by Alejandro Kaur ([id number]) on 11/14/2020 4:46:36 PM Referred By: Brian Hogan Confirmed By:Keo Kaur
[2020-11-14] MEDS ORDERED: COUGH DROP (SUGAR FREE) LOZ 24 LOZ/1 BOX BUCCAL ONE (19:28)
[2020-11-15] MEDS: ACETAMINOPHEN 1,000 MG/100 ML VIAL IV SCH ×2 (00:19→09:09)
--- NOTE | 2020-11-15 07:48 | Surgery Progress Note ---
Date of Service November 15, 2020 Assessment & Plan (1) Hernia, umbilical, with obstruction: POD#2 umbilical hernia repair for incarcerated hernia with obstruction Patient is doing clinically well Tolerating a regular diet and is passing flatus. Denies n/v Some umbilical pain that is manageable with prn medications Will have patient remove outer surgical dressing tomorrow and can shower Okay for discharge today after breakfast if okay with medicine team Plan for follow up with Dr. Burkett in 1-2 weeks in clinic. Dispo instructions given Admission and Anticipated Discharge Date Admission Date: November 13, 2020 Supervising Physician Co-Signing Physician Notes I personally saw and evaluated the patient with Iwona Silvestre PA-C and agree with the assessment and plan. 50 yo male POD#2 umbilical -Doing well, tolerating diet without N/V -He is passing flatus, no BM -Ok to discharge home later today if continues to tolerate diet -F/u in 2 weeks for staple removal Subjective Patient is doing well. Tolerated a regular diet yesterday. Denies nausea/vomiting. Has some mild amara-incisional pain around his umbilicus. He is passing some flatus. No BM yet. Physical Exam Physical Exam: awake/alert Respiratory: normal respiratory effort Gastrointestinal (Abdomen): Inspection/Auscultation: + abdominal surgical incision (surgical dressings c/d/i); abdomen not distended Percussion/Palpation: + abdomen tender (mild ttp around umbilical incision) and abdomen soft Results & Data ([facility]) Vital Signs (Past 12 Hours) Vital Signs Temp Pulse Pulse Pulse Resp BP Pulse Ox 11/15/20 07:07 36.4 C L 63 19 123/81 96 11/15/20 05:35 62 11/15/20 04:00 36.4 C L 61 16 117/69 93 11/15/20 03:05 64 11/15/20 00:30 68 11/14/20 23:42 36.4 C L 71 16 115/60 96 11/14/20 23:00 68 11/14/20 21:50 72 11/14/20 19:52 36.8 C 76 16 113/75 96 Pulse Ox 11/15/20 07:07 11/15/20 05:35 97 11/15/20 04:00 11/15/20 03:05 93 11/15/20 00:30 96 11/14/20 23:42 11/14/20 23:00 11/14/20 21:50 96 11/14/20 19:52 PG Care Time/CCT Total # of Minutes Spent Total Time Spent with Patient: Total time spent is greater than 50% in coordination of care (as documented) at patient's floor/unit and/or counseling patient: Coding Level of Care Code None Diagnoses Hernia, umbilical, with obstruction K42.0
[2020-11-15 08:24] LABS: Hematocrit (blood only) 39.2 % (42-52); Hemoglobin 13.5 g/dL (14.0-18.0); Mean Corpuscular Hemoglobin 31.5 pg (25-34); Mean Corpuscular Hgb Conc 34.4 g/dL (32-36); Mean Corpuscular Volume 91.4 fL (80-100); Mean Platelet Volume 10.4 fL (7.4-10.4); Platelet Count 278 K/uL (130-400); RDW Coefficient of Variation 13.8 % (11.5-14.5); RDW Standard Deviation 45.6 fL (36.4-46.3); Red Blood Count 4.29 M/uL (4.7-6.1); White Blood Count 8.57 K/uL (4.8-10.8)
[2020-11-15] MEDS: METOPROLOL SUCC 50MG EXT REL TAB PO SCH (09:07)
[2020-11-15] MEDS: INSULIN ASPART 100 UNITS/ML 3 ML PEN SC SCH ×2 (09:07→13:12)
[2020-11-15] MEDS: PANTOprazole 40 MG TAB PO SCH (09:08)
[2020-11-15] MEDS: ASPIRIN 81 MG ECTAB PO SCH (09:08)
[2020-11-15] MEDS: ATORVASTATIN 40 MG TAB PO SCH (09:08)
[2020-11-15] MEDS: LIDOCAINE 5% 1 PATCH TD SCH (09:08)
[2020-11-15] MEDS: TICAGRELOR 90 MG TAB PO SCH (09:08)
[2020-11-15 09:09] LABS: Calcium 8.7 mg/dl (8.5-10.1); Creatinine Clr Calc Pharmacy 96.4 ml/min; Est GFR (African American) 91.6; Potassium 4.1 mmol/L (3.5-5.1)
[2020-11-15] MEDS: LACTATED RINGER'S 1,000 ML IV SCH (09:09)
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
[2020-11-15 10:48] LABS: Albumin Level 3.3 gm/dl (3.4-5.0); Bilirubin Direct 0.3 mg/dl (0-0.2); Bilirubin,Total 1.6 mg/dl (0.2-1); Total Protein 7.3 gm/dl (6.4-8.2)
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
== END 2020-11-15 14:10 | disposition home or self-care (01) ==
LOC: ED 17:54 → ASU 21:42 → 2S 23:27